=== PATIENT | female | born 1995 | race Caucasian/White ===

== ENCOUNTER 2019-10-05 12:01 | Emergency (ER) | payer OTHER, SELFPAY ==
[2019-10-05 12:27] VITALS: BP 132/89; PULSE 87; RESP 18; TEMP 36.8; O2SAT 98; BMI 30.1
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
--- NOTE | 2019-10-05 12:45 | XR_ITS ---
WS: [id number] Portable AP upright chest, 10/05/2019 Clinical Data: INJURY Comparison: Portable chest, 07/02/2019 Findings: No nodules, masses or effusions are seen. The heart is normal. The pulmonary vascularity is not increased. No pneumonia or pneumothorax is seen. XR/XR chest 1V portable [id number] Impression: Negative chest.
--- NOTE | 2019-10-05 12:45 | CT_ITS ---
WS: [id number] CT HEAD TECHNIQUE: Noncontrast CT of the head obtained from the skullbase to the vertex. CLINICAL INFORMATION: HOLLAND/AMS COMPARISON: None. DLP: 784.[address] scans at [facility] use at least one of these dose optimization techniques: automat ed exposure control; mA and/or kV adjustment per patient size (includes targeted exams where dose is matched to clinical indication); or iterative reconstruction. FINDINGS: No evidence of intracranial hemorrhage or mass effect. Ventricular system and basal cisterns are saravia nt. No extra-axial fluid collections. No evidence of mass or mass effect. Normal rene-white differen tiation. Paranasal sinuses and mastoid air cells are well aerated. .Normal visualized soft tissues. Notified Neelam Enrique at 10/05/2019 1:[address]/CT head wo con* [id number] IMPRESSION: 1. No evidence of intracranial hemorrhage or mass effect. 2. Normal rene-white differentiation. 3. No acute intracranial findings.
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
[2019-10-05] MEDS: iohexol 300 mg/mL 100 mL Btl IV (13:06)
[2019-10-05] MEDS: iohexol 350 mg/mL 100 mL Btl IV (13:07)
[2019-10-05 13:22] VITALS: RESP 18
[2019-10-05] MEDS: ondansetron 2 mg/ML SDV 2 mL 4 MG IVP (13:22)
[2019-10-05] MEDS: morphine 4 mg/mL SDV 1 mL IVP (13:22)
[2019-10-05 13:25] LABS: Basophils % 0.2 %; Eosinophils % 0.2 %; Hematocrit 37.6 % (37.0-47.0); Hemoglobin 12.3 g/dL (11.5-15.3); Lymphocytes # 0.8 10^3/uL (0.8-4.8); Lymphocytes % 12.9 %; Mean Corpuscular HGB Conc 32.7 g/dL (30.0-36.0); Mean Corpuscular Hemoglobin 29.7 pg (28.0-34.0); Mean Corpuscular Volume 90.8 fL (81-99); Mean Platelet Volume 9.2 fL (7.4-10.4); Monocytes # 0.5 10^3/uL (0.2-0.9); Neutrophils # 4.6 10^3/uL (1.8-7.7); Neutrophils % 78.2 %; Nucleated Red Blood Cells % 0 %; Platelet Count 257 10^3/cmm (130-400); Red Blood Count 4.14 10^6/uL (4.1-5.3); Red Cell Distribution Width 12.2 % (12.1-15.1); White Blood Count 5.9 10^3/uL (4.0-10.0)
[2019-10-05] MEDS: sodium chloride 0.9% 1,000 ML 100 ML IV (13:27)
[2019-10-05 13:41] VITALS: BP 131/82; PULSE 83; RESP 16; O2SAT 99
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
[2019-10-05 14:04] LABS: Alanine Aminotransferase 11 U/L (0-33); Albumin Level 3.6 g/dL (3.5-5.2); Alkaline Phosphatase 66 IU/L (35-105); Anion Gap 16.1 (5-19); Aspartate Amino Transferase 13 U/L (0-32); Blood Urea Nitrogen 8 mg/dL (6-20); Calcium 8.7 mg/dL (8.5-10.5); Carbon Dioxide 24 mmol/L (22-29); Chloride 97 mmol/L (98-107); Creatinine Clr Calc Pharmacy 93.9552; Globulin 2.8 g/dL (1.3-4.6); Glomerular Filtration Rate 76.3 mL/min (90-130); Glucose 84 mg/dL (74-109); Potassium 4.1 mmol/L (3.5-5.1); Sodium 133 mmol/L (136-145); Total Bilirubin 0.3 mg/dL (0.15-1.2); Total Protein 6.4 g/dL (6.6-8.7)
[2019-10-05 14:11] LABS: Bilirubin Urine Neg (NEGATIVE); Blood Urine Neg (Negative); Glucose Urine UA Norm (Normal); Ketones Urine Negative (Negative); Nitrate Urine Negative (Negative); Protein Urine Neg (Negative); Specific Gravity, Urine 1.005 (1.005-1.030); Urine Appearance Clear (CLEAR); Urine Color Yellow (Yellow); Urobilinogen Urine Norm (Negative); pH Urine 5 (5-7)
[2019-10-05 14:12] LABS: Leukocyte Esterase Urine Negative (Negative)
[2019-10-05 14:25] LABS: Mucus Urine 2+
[2019-10-05 14:26] LABS: Add Urine Culture? No; Bacteria Urine TRACE; Squamous Epithelial Cell Urine 0-4 (0-5); WBC Urine 0-4 /hpf (0-5)
[2019-10-05 14:34] VITALS: BP 132/90; PULSE 16; RESP 16; O2SAT 98
== END 2019-10-05 14:32 | disposition home or self-care (01) ==
PROVIDERS: Emergency Provider Emergency Medicine; Family Provider Family Medicine
DX: T14.8XXA Other injury of unspecified body region, initial encounter (principal); Y04.8XXA Assault by other bodily force, initial encounter; Y04.2XXA Assault by strike against or bumped into by another person, initial encounter
CPT/HCPCS: 36415; 70450; 70498; 71045; 71260; 74177; 80053; 81001; 84702; 85025; 96360; 96361; 96374; 96375; 99283; 99284; A9270; J2270; J2405; J7030; Q9967

== ENCOUNTER → 2019-10-21 11:51 | Outpatient (BNVA) | payer OTHER, SELFPAY | PROVIDERS: Family Provider Family Medicine; PCP Family Medicine; Visit Provider Nurse Practitioner | DX: J10.1 Influenza due to other identified influenza virus with other respiratory manifestations (principal); R50.9 Fever, unspecified | CPT/HCPCS: 87804 ==

== ENCOUNTER 2019-11-18 10:02 | Outpatient (CLI) | payer OTHER, SELFPAY ==
[2019-11-18 10:51] LABS: Progesterone 33.44 ng/mL
== END 2019-11-18 10:03 | disposition home or self-care (01) ==
LOC: LAB 10:03
PROVIDERS: Family Provider Family Medicine; PCP Family Medicine; Visit Provider Family Medicine
DX: Z33.1 Pregnant state, incidental (principal)
CPT/HCPCS: 84144; 84702

== ENCOUNTER 2019-11-20 13:25 | Emergency (ER) | payer OTHER, SELFPAY ==
[2019-11-20 13:35] VITALS: BMI 29.2
--- NOTE | 2019-11-20 13:36 | ED_ITS ---
Entered by Mercedez Sen, acting as scribe for Adelso Sheppard DO HPI - General Adult General: Chief complaint: Vaginal Bleeding Stated complaint: 5 WEEKS PREG/BLEEDING Time Seen by Provider: 11/20/19 13:56 History of Present Illness: HPI narrative: 24 yo female presents with possible miscarriage. Pt states that she was sent here from her PCP office. Pt states that she has light spotting, she will have it after sex as well. pt states that she has had 2 miscarriages in the past. Pt states that her body doesn't make progesterone. Pt states that she is about 4 weeks and 4 days. MD complaint: spotting Onset (ago): day(s) (1) Severity: mild Relieving factors: none Associated symptoms: Deny chest pain, dyspnea, malaise, nausea, rash or vomiting Review of Systems Const: Denies: fever, chills, body aches, change in appetite, fatigue or malaise ENMT: Denies: throat pain, ear pain, nasal discharge or nasal congestion Card: Denies: chest pain, edema, shortness of breath on exertion or shortness of breath when lying down Resp: Denies: shortness of breath, productive cough or non-productive cough GI: Denies: abdominal pain, nausea, vomiting, vomiting blood, coffee grounds in vomit, diarrhea, constipation, bloating, blood in stool or black tarry stool : Denies: flank pain, difficulty urinating, painful urination, urinary frequency or urinary urgency Skin/Breast: Denies: rash or itching PFS ED PFSH: Medical History (Updated 11/20/19 @ 14:47 by Adelso Sheppard DO) Miscarriage Thyroid cancer Social History (Updated 10/21/19 @ 11:49 by Emy Youssef LPN) Smoking and tobacco status: never smoked Alcohol intake: never Female Reproductive History: Date of last menstrual period: 09/21/19 Physical Exam Const: COMMON NORMALS: no apparent distress GENERAL APPEARANCE: cooperative and comfortable ORIENTATION/CONSCIOUSNESS: Yes awake, Yes oriented to person, Yes oriented to place and Yes oriented to time HENMT: COMMON NORMALS: normocephalic, head/scalp atraumatic, hearing grossly normal bilaterally, external ears normal, EAC's normal, TM's normal bilaterally, nasal mucous membranes and turbinates normal, moist oral mucous membranes and oropharynx normal HEAD & SCALP: normocephalic and atraumatic NOSE: nasal mucous membranes and turbinates normal EXTERNAL EAR: Yes external ears normal EXTERNAL AUDITORY CANAL: EAC's normal TYMPANIC MEMBRANE: TM's normal bilaterally Eye: COMMON NORMALS: PERRL, EOMs intact bilaterally, conjunctivae normal and no scleral icterus CONJUNCTIVA: Yes conjunctivae normal PUPIL: Yes PERRL Neck/C-Spine: COMMON NORMALS: full ROM, no lymphadenopathy, supple and no JVD Lymph: LYMPHATIC: no lymphadenopathy noted and no lymphedema noted Resp: COMMON NORMALS: normal respiratory effort, no retractions, no use of accessory muscles and clear to auscultation bilaterally AUSCULTATION: clear to auscultation bilaterally Cardio: COMMON NORMALS: no JVD, regular rate, regular rhythm and no murmurs RATE: regular rate RHYTHM: regular rhythm GI: COMMON NORMALS: soft to palpation and no hepatosplenomegaly AUSCULTATION: Yes normoactive bowel sounds PALPATION: Yes soft, No tender, No guarding and Yes no hepatosplenomegaly Extremity: COMMON NORMALS: normal to inspection, normal capillary refill, no clubbing, cyanosis or edema, no calf tenderness and no pedal edema Neuro: SENSORIUM/ORIENTATION: Yes oriented to person, Yes oriented to place and Yes oriented to time Skin: COMMON NORMALS: no rashes or lesions noted GENERAL SKIN EXAM: no rashes or lesions noted Course Vital Signs: Vital signs: Vital Signs Temperature 98.4 F 11/20/19 13:39 Pulse Rate 72 11/20/19 14:53 Respiratory Rate 18 11/20/19 14:53 Blood Pressure 132/82 11/20/19 13:39 Pulse Oximetry 96 11/20/19 14:53 MDM - General Adult MDM Narrative: Medical decision making narrative: Discussed results with the patient beta-hCG has increased recommend continued pelvic rest follow-up with primary care doctor next week. I also discussed with Dr. Goldsmith he is comfortable with this plan does not wish to give any progestins. Lab Data: Attestation: I reviewed the patient's lab results. Labs: Lab Results 11/20/19 11/20/19 Range/Units 14:09 14:09 WBC 8.0 (4.0-10.0) 10^3/ uL RBC 4.94 (4.1-5.3) 10^6/u L Hgb 13.9 (11.5-15.3) g/dL Hct 42.3 (37.0-47.0) % MCV 85.6 (81-99) fL MCH 28.1 (28.0-34.0) pg MCHC 32.9 (30.0-36.0) g/dL RDW 12.2 (12.1-15.1) % Plt Count 257 (130-400) 10^3/c mm MPV 9.4 (7.4-10.4) fL Neut % (Auto) 79.3 % Lymph % (Auto) 13.1 % [place] % (Auto) 7.1 % Eos % (Auto) 0.1 % Baso % (Auto) 0.2 % Neut # (Auto) 6.4 (1.8-7.7) 10^3/u L Lymph # (Auto) 1.1 (0.8-4.8) 10^3/u L [place] # (Auto) 0.6 (0.2-0.9) 10^3/u L Eos # (Auto) 0.0 (0.0-0.8) 10^3/u L Baso # (Auto) 0.0 (0.0-0.1) 10^3/u L Nucleated RBC % (a uto) 0 % Nucleated RBCs # 0.0 /100WBC Ser , Nica i-Qnt 289.00 mIU/mL Discharge Plan Discharge Patient Disposition: Home, Self-Care Clinical Impression: Vaginal bleeding Condition: Stable Prescriptions: No Action levothyroxine [Synthroid] 200 mcg tablet 175 mcg PO DAILY RF: 0 folic acid 1 mg Tablet 1 mg PO DAILY RF: 0 28 mg iron- 800 mcg Tablet 1 tab PO DAILY RF: 0 Discharge Orders: Discharge Order (Routine); Ordered 11/20/19 Ordered By: Adelso Sheppard Referrals: Loki Goldsmith MD [Primary Care Provider] - Discharge Diet: Usual diet Discharge Activity: Resume usual activity Activity Restrictions/Additional Instructions: Pelvic rest. Follow-up with Dr. Goldsmith early next week call for an appointment Discharge Date/Time: 11/20/19 14:55 Coding Level of Care Code ED Custom Studio Coordinator for Chg Fwd Exam Comprehensive The documentation recorded by the Mckinley palma Kialy, accurately reflects the service I personally performed and the decisions made by me, Adelso Sheppard, Nov 20, 2019 13:25
[2019-11-20 13:39] VITALS: BP 132/82; PULSE 84; RESP 16; TEMP 36.9; O2SAT 97
[2019-11-20 14:21] LABS: Basophils % 0.2 %; Eosinophils % 0.1 %; Hematocrit 42.3 % (37.0-47.0); Hemoglobin 13.9 g/dL (11.5-15.3); Lymphocytes # 1.1 10^3/uL (0.8-4.8); Lymphocytes % 13.1 %; Mean Corpuscular HGB Conc 32.9 g/dL (30.0-36.0); Mean Corpuscular Hemoglobin 28.1 pg (28.0-34.0); Mean Corpuscular Volume 85.6 fL (81-99); Mean Platelet Volume 9.4 fL (7.4-10.4); Monocytes # 0.6 10^3/uL (0.2-0.9); Monocytes % 7.1 %; Neutrophils # 6.4 10^3/uL (1.8-7.7); Neutrophils % 79.3 %; Nucleated Red Blood Cells % 0 %; Platelet Count 257 10^3/cmm (130-400); Red Blood Count 4.94 10^6/uL (4.1-5.3); Red Cell Distribution Width 12.2 % (12.1-15.1)
[2019-11-20 14:53] VITALS: PULSE 72; RESP 18; O2SAT 96
== END 2019-11-20 14:55 | disposition home or self-care (01) ==
PROVIDERS: Emergency Provider Family Medicine; Family Provider Family Medicine; PCP Family Medicine
DX: O20.9 Hemorrhage in early pregnancy, unspecified (principal)
CPT/HCPCS: 12345; 36415; 84702; 85025; 99281; 99282

== ENCOUNTER 2019-12-08 14:17 | Outpatient (CLI) | payer OTHER, SELFPAY ==
--- NOTE | 2019-12-08 15:00 | US_ITS ---
WS: [id number] EARLY OBSTETRICAL ULTRASOUND (<14 WEEKS). HISTORY: DATING COMPARISON: None available. Single intrauterine gestational sac is identified. Cardiac activity at 131 BPM. [place]-rump length sanjuana sures 0.8 cm which corresponds to a gestation of 6w5d. Normal-appearing yolk sac and amnion demonstra javi. No subchorionic hemorrhage. No free fluid. Normal size ovaries. Corpus luteum RIGHT ovary. US/US OB <=14 wk fetus w transvag IMPRESSION: 1. Single intrauterine gestation of 6 weeks 5 days with an EDC of 07/28/2020. 2. No free fluid.
== END 2019-12-08 14:18 | disposition home or self-care (01) ==
LOC: RADWPI 14:20
PROVIDERS: Family Provider Family Medicine; PCP Family Medicine; Visit Provider Family Medicine
DX: Z36.87 Encounter for antenatal screening for uncertain dates (principal); Z3A.01 Less than 8 weeks gestation of pregnancy
CPT/HCPCS: 76801; 76817

== ENCOUNTER 2019-12-29 16:32 | Emergency (ER) | payer OTHER, SELFPAY ==
[2019-12-29 16:36] VITALS: BP 130/77; PULSE 83; RESP 18; TEMP 36.4; O2SAT 100; BMI 30.1
--- NOTE | 2019-12-29 17:33 | W.ED.ABDPA2 ---
Documented by User: Adelso Sheppard DO 12/30/19 07:57 HPI - Abdominal Pain General: Chief Complaint: Abdominal Pain Stated Complaint: 11 WEEKS PREG AND IS HAVING PRESSURE Time Seen by Provider: 12/29/19 17:15 History of Present Illness: HPI narrative: 24-year-old female presents to the emergency room with complaint of abdominal pain. She is 11 weeks gestation she is a low pelvic cramping intermittently she has no vaginal discharge no dysuria urgency or frequency no vaginal bleeding. She denies any other abdominal discomfort. MD elicited complaint: abdominal pain Associated Symptoms: Denies bloating, chills, coffee ground emesis, constipation, diarrhea, dysuria, fever(s), hematochezia, hematemesis, melena, nausea and vomiting Related Data: Date of Last Menstrual Period: 10/19/19 Review of Systems Const: Denies: fever, chills, body aches, change in appetite, fatigue or malaise ENMT: Denies: throat pain, ear pain, nasal discharge or nasal congestion Card: Denies: chest pain, edema, shortness of breath on exertion or shortness of breath when lying down Resp: Denies: shortness of breath, productive cough or non-productive cough GI: Denies: abdominal pain, nausea, vomiting, vomiting blood, coffee grounds in vomit, diarrhea, constipation, bloating, blood in stool or black tarry stool : Reports: vaginal discharge (described by pt as typical leukorrhea, no vaginal bleeding); Denies: flank pain, difficulty urinating, painful urination, urinary frequency or urinary urgency Skin/Breast: Denies: rash or itching PFS ED PFSH: Medical History (Updated 12/29/19 @ 19:59 by Neelam Enrique) Miscarriage Thyroid cancer Social History (Updated 10/21/19 @ 11:49 by Emy Youssef LPN) Smoking and tobacco status: never smoked Alcohol intake: never Female Reproductive History: Date of last menstrual period: 10/19/19 Physical Exam Const: COMMON NORMALS: no apparent distress GENERAL APPEARANCE: cooperative and comfortable ORIENTATION/CONSCIOUSNESS: Yes awake, Yes oriented to person, Yes oriented to place and Yes oriented to time Eye: COMMON NORMALS: PERRL, EOMs intact bilaterally, conjunctivae normal and no scleral icterus CONJUNCTIVA: Yes conjunctivae normal PUPIL: Yes PERRL Neck/C-Spine: COMMON NORMALS: full ROM, no lymphadenopathy, supple and no JVD Lymph: LYMPHATIC: no lymphadenopathy noted and no lymphedema noted Resp: COMMON NORMALS: normal respiratory effort, no retractions, no use of accessory muscles and clear to auscultation bilaterally AUSCULTATION: clear to auscultation bilaterally Cardio: COMMON NORMALS: no JVD, regular rate, regular rhythm and no murmurs RATE: regular rate RHYTHM: regular rhythm GI: COMMON NORMALS: soft to palpation and no hepatosplenomegaly AUSCULTATION: Yes normoactive bowel sounds PALPATION: Yes soft, No tender, No guarding and Yes no hepatosplenomegaly : OTHER: Bedside ultrasound cardiac activity and activity noted. heart rates in the 150s to 160s labs are pending UA and beta-hCG done. Care turned over to Dr. Jenkins at change of shift. Extremity: COMMON NORMALS: normal to inspection, normal capillary refill, no clubbing, cyanosis or edema, no calf tenderness and no pedal edema Neuro: SENSORIUM/ORIENTATION: Yes oriented to person, Yes oriented to place and Yes oriented to time Skin: COMMON NORMALS: no rashes or lesions noted GENERAL SKIN EXAM: no rashes or lesions noted Course Vital Signs: Vital signs: Vital Signs Temperature 98.2 F 12/29/19 20:57 Pulse Rate 64 12/29/19 20:57 Respiratory Rate 20 H 12/29/19 20:57 Blood Pressure 119/83 12/29/19 20:57 Pulse Oximetry 100 12/29/19 20:57 MDM - Abdominal Pain Lab Data: Labs: Lab Results 12/29/19 12/29/19 12/29/19 Range/Units 17:42 18:00 18:00 WBC 9.6 (4.0-10.0) 10^3/ uL RBC 4.58 (4.1-5.3) 10^6/u L Hgb 12.7 (11.5-15.3) g/dL Hct 38.6 (37.0-47.0) % MCV 84.3 (81-99) fL MCH 27.7 L (28.0-34.0) pg MCHC 32.9 (30.0-36.0) g/dL RDW 13.2 (12.1-15.1) % Plt Count 270 (130-400) 10^3/c mm MPV 9.6 (7.4-10.4) fL Neut % (Auto) 78.0 % Lymph % (Auto) 14.8 % [place] % (Auto) 6.4 % Eos % (Auto) 0.2 % Baso % (Auto) 0.1 % Neut # (Auto) 7.5 (1.8-7.7) 10^3/u L Lymph # (Auto) 1.4 (0.8-4.8) 10^3/u L [place] # (Auto) 0.6 (0.2-0.9) 10^3/u L Eos # (Auto) 0.0 (0.0-0.8) 10^3/u L Baso # (Auto) 0.0 (0.0-0.1) 10^3/u L Nucleated RBC % (a uto) 0 % Nucleated RBCs # 0.0 /100WBC Sodium (136-145) mmol/L Potassium (3.5-5.1) mmol/L Chloride (98-107) mmol/L Carbon Dioxide (22-29) mmol/L Anion Gap (5-19) BUN (6-20) mg/dL Creatinine (0.5-0.9) mg/dL GFR Calculation (90-130) mL/min Glucose (65-115) mg/dL Calculated Osmolal ity (285-295) mOsm/k g Calcium (8.5-10.5) mg/dL Total Bilirubin (0.15-1.2) mg/dL AST (0-32) U/L ALT (0-33) U/L Alkaline Phosphata se (35-105) IU/L Total Protein (6.6-8.7) g/dL Albumin (3.5-5.2) g/dL Globulin (1.3-4.6) g/dL Lipase 36 (13-60) U/L Ser , [place] 57160.00 mIU/mL Urine Color Yellow (Yellow) Urine Appearance Sl hazy (CLEAR) Urine pH 5 (5-7) Ur Specific Gravit y 1.020 (1.005-1.030) Urine Protein Neg (Negative) Urine Glucose (UA) Norm (Normal) Urine Ketones Negative (Negative) Urine Blood Neg (Negative) Urine Nitrate Negative (Negative) Urine Bilirubin Neg (NEGATIVE) Urine Urobilinogen Norm (Negative) mg/dL Ur Leukocyte Liliana ase 2+ H (Negative) Urine RBC None (0-2) /hpf Urine WBC 5-10 H (0-5) /hpf Ur Squamous Epith Cells 10-15 H (0-5) Urine Bacteria 1+ H (NONE) Blood Type Rho(D) Type 12/29/19 12/29/19 Range/Units 18:00 18:00 WBC (4.0-10.0) 10^3/ uL RBC (4.1-5.3) 10^6/u L Hgb (11.5-15.3) g/dL Hct (37.0-47.0) % MCV (81-99) fL MCH (28.0-34.0) pg MCHC (30.0-36.0) g/dL RDW (12.1-15.1) % Plt Count (130-400) 10^3/c mm MPV (7.4-10.4) fL Neut % (Auto) % Lymph % (Auto) % [place] % (Auto) % Eos % (Auto) % Baso % (Auto) % Neut # (Auto) (1.8-7.7) 10^3/u L Lymph # (Auto) (0.8-4.8) 10^3/u L [place] # (Auto) (0.2-0.9) 10^3/u L Eos # (Auto) (0.0-0.8) 10^3/u L Baso # (Auto) (0.0-0.1) 10^3/u L Nucleated RBC % (a uto) % Nucleated RBCs # /100WBC Sodium 135 L (136-145) mmol/L Potassium 4.3 (3.5-5.1) mmol/L Chloride 99 (98-107) mmol/L Carbon Dioxide 26 (22-29) mmol/L Anion Gap 14.3 (5-19) BUN 10 (6-20) mg/dL Creatinine 0.7 (0.5-0.9) mg/dL GFR Calculation 102.0 (90-130) mL/min Glucose 79 (65-115) mg/dL Calculated Osmolal ity 275 L (285-295) mOsm/k g Calcium 9.0 (8.5-10.5) mg/dL Total Bilirubin 0.2 (0.15-1.2) mg/dL AST 13 (0-32) U/L ALT 12 (0-33) U/L Alkaline Phosphata se 64 (35-105) IU/L Total Protein 6.7 (6.6-8.7) g/dL Albumin 4.3 (3.5-5.2) g/dL Globulin 2.4 (1.3-4.6) g/dL Lipase (13-60) U/L Ser , Nica i-Qnt mIU/mL Urine Color (Yellow) Urine Appearance (CLEAR) Urine pH (5-7) Ur Specific Gravit y (1.005-1.030) Urine Protein (Negative) Urine Glucose (UA) (Normal) Urine Ketones (Negative) Urine Blood (Negative) Urine Nitrate (Negative) Urine Bilirubin (NEGATIVE) Urine Urobilinogen (Negative) mg/dL Ur Leukocyte Liliana ase (Negative) Urine RBC (0-2) /hpf Urine WBC (0-5) /hpf Ur Squamous Epith Cells (0-5) Urine Bacteria (NONE) Blood Type B Positive Rho(D) Type Positive Discharge Plan Discharge Patient Disposition: Home, Self-Care Clinical Impression: Threatened miscarriage Condition: Stable Prescriptions: New Keflex 500 mg capsule 500 mg PO Q6H 10 Days Qty: 40 RF: 0 No Action levothyroxine 150 mcg tablet 150 mcg PO DAILY RF: 0 folic acid 1 mg Tablet 1 mg PO DAILY RF: 0 PNV cmb#[id number]-ferrous fumarate-FA [] 28 mg iron- 800 mcg Tablet 1 tab PO DAILY RF: 0 Discharge Orders: Discharge Order (Routine); Ordered 12/29/19 Ordered By: Neelam Enrique Referrals: Loki Goldsmith MD [Primary Care Provider] - 1-3 days Discharge Diet: Advance as tolerated Discharge Activity: Resume usual activity Patient Instructions: Threatened Miscarriage (ED) Activity Restrictions/Additional Instructions: Please return to the ER immediately for any of the signs or symptoms listed on your discharge instruction sheets, worsening/changing of your symptoms, you are not getting better as quickly as expected, or for ANY other cause or concerns. Please return to the ER for new onset of vaginal bleeding, increased pelvic pain, vomiting, or for any other cause for concern. Discharge Date/Time: 12/29/19 20:58 Coding Level of Care Code ED Staff Electrical Engineer for Chg Fwd Documented by User: Neelam Enrique 12/29/19 20:00 HPI - Abdominal Pain General: Chief Complaint: Abdominal Pain Stated Complaint: 11 WEEKS PREG AND IS HAVING PRESSURE Time Seen by Provider: 12/29/19 17:15 [facility] ED PFSH: Medical History (Updated 12/29/19 @ 19:59 by Neelam Enrique) Miscarriage Thyroid cancer Social History (Updated 10/21/19 @ 11:49 by Emy Youssef LPN) Smoking and tobacco status: never smoked Alcohol intake: never Course ED course: 1800 -Case assumed by me at change of shift from Dr. Sheppard. 1845 -I discussed the patient's ultrasound results with her. She has no vaginal discharge or bleeding at this time. She does not want to have a pelvic exam performed. I have informed her this is the proper thing to do for her work-up but she still declines. I do not think this is [place] necessary as the cervix was closed on ultrasound and she has no vaginal discharge or bleeding. Vital Signs: Vital signs: Vital Signs Temperature 98.2 F 12/29/19 20:57 Pulse Rate 64 12/29/19 20:57 Respiratory Rate 20 H 12/29/19 20:57 Blood Pressure 119/83 12/29/19 20:57 Pulse Oximetry 100 12/29/19 20:57 MDM - Abdominal Pain MDM Narrative: Medical decision making narrative: 1999 - Ene is a very nice 24-year-old female who comes in with cramping abdominal pain. At this time her pain has passed. She has no vaginal bleeding or discharge. She is still declining a pelvic exam. Her urine is slightly contaminated but I will go ahead and place her on Keflex for UTI. The patient agrees to follow-up with her primary medical doctor and lump inspector. She understands this could be the sign of an early miscarriage and she agrees to return should her symptoms change or worsen. Lab Data: Attestation: I reviewed the patient's lab results. Labs: Lab Results 12/29/19 12/29/19 12/29/19 Range/Units 17:42 18:00 18:00 WBC 9.6 (4.0-10.0) 10^3/ uL RBC 4.58 (4.1-5.3) 10^6/u L Hgb 12.7 (11.5-15.3) g/dL Hct 38.6 (37.0-47.0) % MCV 84.3 (81-99) fL MCH 27.7 L (28.0-34.0) pg MCHC 32.9 (30.0-36.0) g/dL RDW 13.2 (12.1-15.1) % Plt Count 270 (130-400) 10^3/c mm MPV 9.6 (7.4-10.4) fL Neut % (Auto) 78.0 % Lymph % (Auto) 14.8 % [place] % (Auto) 6.4 % Eos % (Auto) 0.2 % Baso % (Auto) 0.1 % Neut # (Auto) 7.5 (1.8-7.7) 10^3/u L Lymph # (Auto) 1.4 (0.8-4.8) 10^3/u L [place] # (Auto) 0.6 (0.2-0.9) 10^3/u L Eos # (Auto) 0.0 (0.0-0.8) 10^3/u L Baso # (Auto) 0.0 (0.0-0.1) 10^3/u L Nucleated RBC % (a uto) 0 % Nucleated RBCs # 0.0 /100WBC Sodium (136-145) mmol/L Potassium (3.5-5.1) mmol/L Chloride (98-107) mmol/L Carbon Dioxide (22-29) mmol/L Anion Gap (5-19) BUN (6-20) mg/dL Creatinine (0.5-0.9) mg/dL GFR Calculation (90-130) mL/min Glucose (65-115) mg/dL Calculated Osmolal ity (285-295) mOsm/k g Calcium (8.5-10.5) mg/dL Total Bilirubin (0.15-1.2) mg/dL AST (0-32) U/L ALT (0-33) U/L Alkaline Phosphata se (35-105) IU/L Total Protein (6.6-8.7) g/dL Albumin (3.5-5.2) g/dL Globulin (1.3-4.6) g/dL Lipase 36 (13-60) U/L Ser , Nica i-Qnt 05574.00 mIU/mL Urine Color Yellow (Yellow) Urine Appearance Sl hazy (CLEAR) Urine pH 5 (5-7) Ur Specific Gravit y 1.020 (1.005-1.030) Urine Protein Neg (Negative) Urine Glucose (UA) Norm (Normal) Urine Ketones Negative (Negative) Urine Blood Neg (Negative) Urine Nitrate Negative (Negative) Urine Bilirubin Neg (NEGATIVE) Urine Urobilinogen Norm (Negative) mg/dL Ur Leukocyte Liliana ase 2+ H (Negative) Urine RBC None (0-2) /hpf Urine WBC 5-10 H (0-5) /hpf Ur Squamous Epith Cells 10-15 H (0-5) Urine Bacteria 1+ H (NONE) Blood Type Rho(D) Type 12/29/19 12/29/19 Range/Units 18:00 18:00 WBC (4.0-10.0) 10^3/ uL RBC (4.1-5.3) 10^6/u L Hgb (11.5-15.3) g/dL Hct (37.0-47.0) % MCV (81-99) fL MCH (28.0-34.0) pg MCHC (30.0-36.0) g/dL RDW (12.1-15.1) % Plt Count (130-400) 10^3/c mm MPV (7.4-10.4) fL Neut % (Auto) % Lymph % (Auto) % [place] % (Auto) % Eos % (Auto) % Baso % (Auto) % Neut # (Auto) (1.8-7.7) 10^3/u L Lymph # (Auto) (0.8-4.8) 10^3/u L [place] # (Auto) (0.2-0.9) 10^3/u L Eos # (Auto) (0.0-0.8) 10^3/u L Baso # (Auto) (0.0-0.1) 10^3/u L Nucleated RBC % (a uto) % Nucleated RBCs # /100WBC Sodium 135 L (136-145) mmol/L Potassium 4.3 (3.5-5.1) mmol/L Chloride 99 (98-107) mmol/L Carbon Dioxide 26 (22-29) mmol/L Anion Gap 14.3 (5-19) BUN 10 (6-20) mg/dL Creatinine 0.7 (0.5-0.9) mg/dL GFR Calculation 102.0 (90-130) mL/min Glucose 79 (65-115) mg/dL Calculated Osmolal ity 275 L (285-295) mOsm/k g Calcium 9.0 (8.5-10.5) mg/dL Total Bilirubin 0.2 (0.15-1.2) mg/dL AST 13 (0-32) U/L ALT 12 (0-33) U/L Alkaline Phosphata se 64 (35-105) IU/L Total Protein 6.7 (6.6-8.7) g/dL Albumin 4.3 (3.5-5.2) g/dL Globulin 2.4 (1.3-4.6) g/dL Lipase (13-60) U/L Ser , Nica i-Qnt mIU/mL Urine Color (Yellow) Urine Appearance (CLEAR) Urine pH (5-7) Ur Specific Gravit y (1.005-1.030) Urine Protein (Negative) Urine Glucose (UA) (Normal) Urine Ketones (Negative) Urine Blood (Negative) Urine Nitrate (Negative) Urine Bilirubin (NEGATIVE) Urine Urobilinogen (Negative) mg/dL Ur Leukocyte Liliana ase (Negative) Urine RBC (0-2) /hpf Urine WBC (0-5) /hpf Ur Squamous Epith Cells (0-5) Urine Bacteria (NONE) Blood Type B Positive Rho(D) Type Positive Imaging Data ^: US: My impression: Pelvic ultrasound, tech interpretation -9-week 6-day intrauterine . Good heart movement. Heart rate 186. Good movement. All other findings unremarkable. Discharge Plan Discharge Patient Disposition: Home, Self-Care Clinical Impression: Threatened miscarriage Condition: Stable Prescriptions: New Keflex 500 mg capsule 500 mg PO Q6H 10 Days Qty: 40 RF: 0 No Action levothyroxine 150 mcg tablet 150 mcg PO DAILY RF: 0 folic acid 1 mg Tablet 1 mg PO DAILY RF: 0 PNV cmb#95-ferrous fumarate-FA [] 28 mg iron- 800 mcg Tablet 1 tab PO DAILY RF: 0 Discharge Orders: Discharge Order (Routine); Ordered 12/29/19 Ordered By: Neelam Enrique Referrals: Loki Goldsmith MD [Primary Care Provider] - 1-3 days Discharge Diet: Advance as tolerated Discharge Activity: Resume usual activity Patient Instructions: Threatened Miscarriage (ED) Activity Restrictions/Additional Instructions: Please return to the ER immediately for any of the signs or symptoms listed on your discharge instruction sheets, worsening/changing of your symptoms, you are not getting better as quickly as expected, or for ANY other cause or concerns. Please return to the ER for new onset of vaginal bleeding, increased pelvic pain, vomiting, or for any other cause for concern. Discharge Date/Time: 12/29/19 20:58 Coding Level of Care Code ED Staff Electrical Engineer for Scott Felder
--- NOTE | 2019-12-29 18:07 | US_ITS ---
WS: [id number] EARLY OBSTETRICAL ULTRASOUND (<14 WEEKS). HISTORY: Pain COMPARISON: None available. Single intrauterine gestational sac is identified. Cardiac activity at 180 BPM. [place]-rump length sanjuana sures 3.0 cm which corresponds to a gestation of 9w6d. Normal-appearing yolk sac and amnion demonstra javi. No subchorionic hemorrhage. No free fluid. Corpus luteum cyst RIGHT ovary with a maximum diameter of 2.0 cm. US/US OB <= 14 weeks fetus [id number] IMPRESSION: 1. Single intrauterine gestation of 9 weeks 6 days with an EDC of 07/27/2020. 2. No complications. 3. Appropriate growth since the prior ultrasound of 12/08/2019.
[2019-12-29 18:08] LABS: Bilirubin Urine Neg (NEGATIVE); Blood Urine Neg (Negative); Glucose Urine UA Norm (Normal); Ketones Urine Negative (Negative); Leukocyte Esterase Urine 2+ (Negative); Nitrate Urine Negative (Negative); Protein Urine Neg (Negative); Urine Appearance SL Hazy (CLEAR); Urine Color Yellow (Yellow); Urobilinogen Urine Norm (Negative); pH Urine 5 (5-7)
[2019-12-29 18:09] LABS: Add Urine Microscopic? YES
[2019-12-29 18:11] LABS: Add Urine Culture? No; Bacteria Urine 1+
[2019-12-29 18:43] LABS: Basophils % 0.1 %; Eosinophils % 0.2 %; Hematocrit 38.6 % (37.0-47.0); Hemoglobin 12.7 g/dL (11.5-15.3); Lymphocytes # 1.4 10^3/uL (0.8-4.8); Lymphocytes % 14.8 %; Mean Corpuscular HGB Conc 32.9 g/dL (30.0-36.0); Mean Corpuscular Hemoglobin 27.7 pg (28.0-34.0); Mean Corpuscular Volume 84.3 fL (81-99); Mean Platelet Volume 9.6 fL (7.4-10.4); Monocytes # 0.6 10^3/uL (0.2-0.9); Monocytes % 6.4 %; Neutrophils # 7.5 10^3/uL (1.8-7.7); Nucleated Red Blood Cells % 0 %; Platelet Count 270 10^3/cmm (130-400); Red Blood Count 4.58 10^6/uL (4.1-5.3); Red Cell Distribution Width 13.2 % (12.1-15.1); White Blood Count 9.6 10^3/uL (4.0-10.0)
[2019-12-29 19:11] LABS: Alanine Aminotransferase 12 U/L (0-33); Albumin Level 4.3 g/dL (3.5-5.2); Alkaline Phosphatase 64 IU/L (35-105); Anion Gap 14.3 (5-19); Aspartate Amino Transferase 13 U/L (0-32); Blood Urea Nitrogen 10 mg/dL (6-20); Carbon Dioxide 26 mmol/L (22-29); Chloride 99 mmol/L (98-107); Globulin 2.4 g/dL (1.3-4.6); Glucose 79 mg/dL (65-115); Osmolality Calculated 275 mOsm/kg (285-295); Potassium 4.3 mmol/L (3.5-5.1); Sodium 135 mmol/L (136-145); Total Bilirubin 0.2 mg/dL (0.15-1.2); Total Protein 6.7 g/dL (6.6-8.7)
[2019-12-29 19:45] LABS: Lipase 36 U/L (13-60)
[2019-12-29] MEDS: cephALEXin 500 mg Capsule PO (20:30)
[2019-12-29 20:57] VITALS: BP 119/83; PULSE 64; RESP 20; TEMP 36.8; O2SAT 100
== END 2019-12-29 20:58 | disposition home or self-care (01) ==
PROVIDERS: Physician Assistant; Emergency Provider Emergency Medicine; Family Provider Family Medicine; PCP Family Medicine
DX: O20.0 Threatened abortion (principal); Z3A.11 11 weeks gestation of pregnancy; Z85.850 Personal history of malignant neoplasm of thyroid
CPT/HCPCS: 12345; 36415; 76801; 80053; 81001; 83690; 84702; 85025; 86900; 99281; 99283

== ENCOUNTER 2020-03-03 13:06 | Outpatient (CLI) | payer OTHER, SELFPAY ==
--- NOTE | 2020-03-03 13:30 | US_ITS ---
WS: [id number] ULTRASOUND OB COMPLETE TECHNIQUE: Complete ultrasound. CLINICAL INFORMATION: SUPERVISION NORMAL COMPARISON: None. FINDINGS: Cervix measures 5.5 cm Single interuterine gestation is identified with cephalic presentation. Placenta is fundal posterior. Placenta grade 0. Normal amniotic fluid volume. cardiac activity: 147 BPM. AGA: 19w3d NATALIE by ultrasound: 07/25/2020 Estimated weight: 292 g BDP: 4.5 cm = 19w5d HC: 16.9 cm = 19w4d AC: 14.0 cm = 19w3d FEMUR LENGTH: 3.0 cm = 19w3d Anatomic survey: Anatomic survey is normal. Normal stomach. Kidneys and bladder are normal. Normal 3 vessel cord. Norm al 3 vessel cord insertion. Normal 4 chamber heart. Normal spine. Intracranial contents are normal. N ormal posterior fossa and cisterna magna. US/US OB >= 14 weeks fetus [id number] IMPRESSION: 1. Single intrauterine with visualized cardiac activity. AGA 19w3d w ith NATALIE 07/25/2020. 2. Placenta is fundal posterior. No evidence of abruption or previa. 3. anatomic survey is normal. 4. Normal amniotic fluid volume.
== END 2020-03-03 13:07 | disposition home or self-care (01) ==
LOC: RAD 13:07
PROVIDERS: PCP Family Medicine; Visit Provider Family Medicine
DX: Z3A.19 19 weeks gestation of pregnancy (principal); Z34.92 Encounter for supervision of normal pregnancy, unspecified, second trimester
CPT/HCPCS: 76805

== ENCOUNTER 2020-04-17 11:37 | Outpatient (CLI) | payer OTHER, SELFPAY ==
[2020-04-17 11:52] VITALS: BP 117/70; PULSE 70
[2020-04-17 12:00] VITALS: RESP 16; TEMP 36.8
[2020-04-17 12:01] VITALS: BMI 31.1
[2020-04-17 12:03] VITALS: BP 110/65; PULSE 71
[2020-04-17 12:13] VITALS: BP 0/0
[2020-04-17 12:15] VITALS: BP 110/65; PULSE 71; RESP 16; TEMP 36.8
== END 2020-04-17 12:15 | disposition home or self-care (01) ==
LOC: OPOB 11:47 → OBGYN 11:48
PROVIDERS: PCP Family Medicine; Visit Provider Family Medicine
DX: O26.92 Pregnancy related conditions, unspecified, second trimester (principal); H54.7 Unspecified visual loss; Z3A.26 26 weeks gestation of pregnancy
CPT/HCPCS: 59025; 99211

== ENCOUNTER 2020-04-17 12:17 | Emergency (ER) | payer OTHER, SELFPAY ==
[2020-04-17 12:22] VITALS: BP 119/86; PULSE 81; RESP 18; TEMP 36.5; O2SAT 98; BMI 30.1
--- NOTE | 2020-04-17 12:46 | W.ED.EYEPROB ---
HPI - Eye Problem General: Chief complaint: Eye Problems Stated complaint: 26 weeks preg/blurry vision Time Seen by Provider: 04/17/20 12:21 History of Present Illness: HPI Narrative: 24-year-old female comes in complaining of visual disturbance had a sudden onset of tamia-like shaped bright spot at's in both of her eyes. She will see it when she covers her left or her right she is currently this is her third she has 2 living children 1 living children. She L1 SAB 1 she denies any falls denies any head trauma denies any injuries or direct trauma to the eye had sudden onset when she bent over. She is not had any other problem with her . chief complaint: vision change Onset (ago): minute(s) Onset description: sudden Duration: constant Location: both eyes Eye Symptoms: other (Tamia-shaped bright light is noted bilaterally in the central vision) Mechanism: none Severity: mild Context: other () Associated symptoms: Denies cough, fever(s), headache(s), nausea, neck pain, rhinorrhea, vomiting or weakness Treatments Prior to Arrival: none Review of Systems Const: Denies: fever(s) ENMT: Denies: throat pain, ear or mastoid pain, nasal discharge or nasal congestion Card: Denies: chest pain, edema, dyspnea on exertion or orthopnea Resp: Denies: dyspnea, productive cough or non-productive cough GI: Denies: nausea or vomiting : Denies: flank pain, difficulty voiding, dysuria, urinary frequency or urinary urgency Musc: Denies: neck pain Skin/Breast: Denies: rash or pruritus Neuro: Denies: headache(s) PFSH ED PFSH: Medical History (Updated 04/17/20 @ 14:22 by Adelso Sheppard DO) Miscarriage Thyroid cancer Thyroid carcinoma Surgical History (Updated 04/17/20 @ 12:51 by Adelso Sheppard DO) S/P thyroid surgery Thyroidectomy done in 2 stages Social History (Updated 10/21/19 @ 11:49 by Emy Youssef LPN) Smoking and tobacco status: never smoked Alcohol intake: never Female Reproductive History: Date of last menstrual period: 10/19/19 Physical Exam Const: COMMON NORMALS: no acute distress GENERAL APPEARANCE: cooperative and comfortable ORIENTATION/CONSCIOUSNESS: Yes awake, Yes oriented to person, Yes oriented to place and Yes oriented to time HENMT: COMMON NORMALS: normocephalic, atraumatic and hearing grossly normal bilaterally HEAD & SCALP: normocephalic and atraumatic Eye: COMMON NORMALS: Equal, round and reactive pupils present, EOMs intact bilaterally, conjunctivae normal and no scleral icterus CONJUNCTIVA: Yes conjunctivae normal PUPIL: Yes Equal, round and reactive pupils present Neck/C-Spine: COMMON NORMALS: full ROM, no lymphadenopathy, supple and no JVD Lymph: LYMPHATIC: no lymphadenopathy noted and no lymphedema noted Resp: COMMON NORMALS: normal respiratory effort, No retractions, No use of accessory muscles and clear to auscultation bilaterally AUSCULTATION: clear to auscultation bilaterally Cardio: COMMON NORMALS: no JVD, regular rate, regular rhythm and No murmurs present (Cardio) RATE: regular rate RHYTHM: regular rhythm GI: COMMON NORMALS: Soft to palpation and No hepatosplenomegaly present AUSCULTATION: Yes normoactive bowel sounds PALPATION: Yes Soft to palpation, No Tenderness to palpation present (GI), No Guarding due to palpation present (GI) and Yes No hepatosplenomegaly present Extremity: COMMON NORMALS: normal to inspection, capillary refill normal, no clubbing, cyanosis or edema, no calf tenderness and no pedal edema Neuro: SENSORIUM/ORIENTATION: Yes oriented to person, Yes oriented to place and Yes oriented to time OTHER: No focal neurologic deficits noted. Visual carlin are normal. Skin: COMMON NORMALS: no rashes or lesions noted GENERAL SKIN EXAM: no rashes or lesions noted Course Vital Signs: Vital signs: Vital Signs Temperature 97.7 F 04/17/20 12:22 Pulse Rate 70 04/17/20 14:37 Respiratory Rate 04/17/20 14:37 Blood Pressure 111/64 04/17/20 14:37 Pulse Oximetry 97 04/17/20 14:37 MDM - Eye Problem MDM Narrative: Medical decision making narrative: Margi with the patient and with Dr. Goldsmith. No findings on exam or CT will go ahead and discharge her home she has worsening or recurrent symptoms she can return otherwise may need to follow-up with Dr. Goldsmith further advanced imaging may be indicated. I suspect this is a migraine variant. Discharge Plan Discharge Patient Disposition: Home Clinical Impression: , Change in vision Condition: Stable Prescriptions: No Action levothyroxine 150 mcg tablet 175 mcg PO DAILY RF: 0 metronidazole [Flagyl] 500 mg Tablet 250 mg PO BID RF: 0 Tylenol 325 mg Tablet 650 mg PO PRN RF: 0 PNV cmb#95-ferrous fumarate-FA [] 28 mg iron- 800 mcg Tablet 1 tab PO DAILY RF: 0 Referrals: Loki Goldsmith MD [Primary Care Provider] - Discharge Diet: Usual diet Discharge Activity: Increase activity as tolerated Activity Restrictions/Additional Instructions: Follow-up with Dr. Goldsmith this week. Discharge Date/Time: 04/17/20 14:38 Coding Level of Care Code ED Radio Program Checker for Chg Fwd Exam Comprehensive
[2020-04-17 13:21] VITALS: BP 130/71; PULSE 79; RESP 16; O2SAT 97
--- NOTE | 2020-04-17 13:23 | CT_ITS ---
WS: [id number] CT HEAD NONCONTRAST HISTORY: vision changes TECHNIQUE: Contiguous axial imaging performed through the brain in 2.5 mm imaging. Bone and soft tiss ue windows. Sagittal and coronal reformats reviewed. All CT scans at [facility] use at ast one of these dose optimization techniques: automated exposure control; mA and/or kV adjustment pe r patient size (includes targeted exams where dose is matched to clinical indication); or iterative r econstruction. DLP: 740.7 mGy.cm COMPARISON: 10/05/2019 No acute intracranial hemorrhage, midline shift or mass effect. No atrophy or prior infarcts or herniation. Ventricles: Normal size with no hydrocephalus. Paranasal sinuses: As visualized are clear. Mastoid air cells: Well pneumatized. Calvarium and scalp: Skull is intact with no soft tissue edema or swelling. CT/CT head wo con* [id number] IMPRESSION: Negative head CT.
--- NOTE | 2020-04-17 13:47 | PC.NURSE ---
Pt in CT
[2020-04-17 14:01] VITALS: BP 118/69; PULSE 66; RESP 16; O2SAT 99
--- NOTE | 2020-04-17 14:03 | PC.NURSE ---
Pt updated on wait for CT results. Pt denies needs at this time. Call light in reach.
[2020-04-17 14:37] VITALS: BP 111/64; PULSE 70; RESP 17; O2SAT 97
== END 2020-04-17 14:38 | disposition home or self-care (01) ==
PROVIDERS: Emergency Provider Family Medicine; PCP Family Medicine
DX: O26.892 Other specified pregnancy related conditions, second trimester (principal); H53.8 Other visual disturbances; Z3A.26 26 weeks gestation of pregnancy; Z85.850 Personal history of malignant neoplasm of thyroid
CPT/HCPCS: 12345; 70450; 99282

== ENCOUNTER 2020-05-03 17:26 | Outpatient (CLI) | payer OTHER, SELFPAY ==
[2020-05-03 17:39] VITALS: BP 0/0
[2020-05-03 17:42] VITALS: BP 121/69; PULSE 78
[2020-05-03 18:35] VITALS: BMI 31.6
[2020-05-03 18:52] LABS: Bilirubin Urine Neg (NEGATIVE); Blood Urine Neg (Negative); Glucose Urine UA Norm (Normal); Ketones Urine Negative (Negative); Leukocyte Esterase Urine Negative (Negative); Nitrate Urine Negative (Negative); Protein Urine Neg (Negative); Specific Gravity, Urine 1.015 (1.005-1.030); Urine Appearance Clear (CLEAR); Urine Color Yellow (Yellow); Urobilinogen Urine Norm (Negative); pH Urine 7 (5-7)
[2020-05-03 18:54] LABS: Mucus Urine 2+
[2020-05-03 18:55] LABS: Add Urine Culture? No; Bacteria Urine 1+; WBC Urine 0-4 /hpf (0-5)
[2020-05-03 19:32] VITALS: BP 120/74; PULSE 73; RESP 16; TEMP 36.9
[2020-05-03 19:46] VITALS: BP 120/74; PULSE 73; RESP 16; TEMP 36.9
== END 2020-05-03 19:37 | disposition home or self-care (01) ==
LOC: OPOB 17:35 → OBGYN 17:35
PROVIDERS: PCP Family Medicine; Visit Provider Family Medicine
DX: O26.899 Other specified pregnancy related conditions, unspecified trimester (principal); Z3A.00 Weeks of gestation of pregnancy not specified; R10.9 Unspecified abdominal pain
CPT/HCPCS: 81001; 99211

== ENCOUNTER 2020-05-04 09:07 | Outpatient (CLI) | payer OTHER, SELFPAY ==
[2020-05-04 09:58] LABS: Free T4 Free Thyroxine 1.68 ng/dL (0.82-1.77); T3 Free 2.9 PG/ML (2.0-4.4); Thyroid Stimulating Hormone 2.28 uIU/mL (0.27-4.20)
== END 2020-05-04 09:08 | disposition home or self-care (01) ==
LOC: LAB 09:10
PROVIDERS: PCP Family Medicine; Visit Provider Internal Medicine Endocrinology, Diabetes & Metabolism
DX: Z85.850 Personal history of malignant neoplasm of thyroid (principal); O99.282 Endocrine, nutritional and metabolic diseases complicating pregnancy, second trimester; E89.0 Postprocedural hypothyroidism
CPT/HCPCS: 84439; 84443; 84481

== ENCOUNTER → 2020-05-24 10:23 | Outpatient (BNVA) | payer OTHER, SELFPAY | PROVIDERS: PCP Family Medicine; Visit Provider Family Medicine | DX: U07.1 COVID-19 (principal) | CPT/HCPCS: 87635 ==

== ENCOUNTER → 2020-05-29 09:14 | Outpatient (BNVA) | payer OTHER, SELFPAY | PROVIDERS: PCP Family Medicine; Visit Provider Family Medicine | DX: U07.1 COVID-19 (principal); Z87.09 Personal history of other diseases of the respiratory system; Z34.90 Encounter for supervision of normal pregnancy, unspecified, unspecified trimester; Z3A.32 32 weeks gestation of pregnancy | CPT/HCPCS: 80048; 81000; 85025; 87400 ==

== ENCOUNTER 2020-06-09 14:38 | Outpatient (CLI) | payer OTHER, SELFPAY ==
--- NOTE | 2020-06-09 14:45 | US_ITS ---
WS: [id number] OB ultrasound, 06/09/2020 Clinical Data: EVALUATE DUE TO POSITIVE COVID 19 IN Comparison: OB ultrasound, 03/03/2020. Findings: The heart rate is 153 beats per minute. Fetus is in the vertex presentation The cervix measures 4.03 cm and is closed. The fetus is in the vertex presentation. The YUMIKO is 16.73 cm. The center is [facility]. Measurements of growth and development: BPD: 8.3 cm 33 weeks 3 days HC: 30.2 cm 33 weeks 4 days AC: 28.7 cm 32 weeks 5 days FL: 6.5 cm 33 weeks 3 days The estimated weight is 2111 or approximately 1 lb. 10 oz. The estimated gestational age is 33w 2d with an NATALIE of approximately 07/26/2020. / [place] [id number] Impression: 1. Single intrauterine in vertex presentation. 2. Estimated gestational age 33w2d with an NATALIE of 07/26/2020. 3. heart rate 153 beats per minute.
== END 2020-06-09 14:39 | disposition home or self-care (01) ==
LOC: RAD 14:41
PROVIDERS: PCP Family Medicine; Visit Provider Family Medicine
DX: Z36.89 Encounter for other specified antenatal screening (principal); Z3A.33 33 weeks gestation of pregnancy; U07.1 COVID-19
CPT/HCPCS: 76816

== ENCOUNTER 2020-06-14 18:50 | Outpatient (CLI) | payer OTHER, SELFPAY ==
[2020-06-14] VITALS (11 sets, daily range): BP systolic 136; BP diastolic 83; PULSE 85–106; RESP 16; TEMP 36.6; O2SAT 97–99
[2020-06-14 19:54] LABS: Bacteria Urine 1+ /hpf; Bilirubin Urine Neg (Negative); Blood Urine Neg (Negative); Glucose Urine UA Norm (Normal); Ketones Urine Negative (Negative); Leukocyte Esterase Urine Trace (Negative); Mucus Urine 3+ /hpf; Nitrate Urine Negative (Negative); Protein Urine Neg (Negative); RBC Urine 0-4 /hpf (0-2); Urine Appearance Hazy (CLEAR); Urine Color Yellow (Yellow); Urobilinogen Urine Neg (Negative); WBC Urine 0-4 /hpf (0-5); pH Urine 6 (5-7)
[2020-06-14 19:55] LABS: Add Urine Culture? No; Amorphous Sediment Urine 1+ /hpf
== END 2020-06-14 20:10 | disposition home or self-care (01) ==
LOC: OPOB 19:00 → OBGYN 19:01
PROVIDERS: PCP Family Medicine; Visit Provider Family Medicine
DX: O26.899 Other specified pregnancy related conditions, unspecified trimester (principal); Z3A.00 Weeks of gestation of pregnancy not specified; R10.2 Pelvic and perineal pain
CPT/HCPCS: 59025; 81001

== ENCOUNTER 2020-07-08 17:50 | Outpatient (CLI) | payer OTHER, SELFPAY ==
[2020-07-08] VITALS (7 sets, daily range): BP systolic 133–165; BP diastolic 74–85; PULSE 76–81; RESP 16; TEMP 36.6–36.7; BMI 31.6
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
[2020-07-08 18:57] LABS: Add Urine Microscopic? YES; Bilirubin Urine Neg (Negative); Blood Urine Neg (Negative); Glucose Urine UA Norm (Normal); Ketones Urine 2+ (Negative); Leukocyte Esterase Urine 1+ (Negative); Nitrate Urine Negative (Negative); Protein Urine Neg (Negative); Urine Color Yellow (Yellow); Urobilinogen Urine 1 mg/dL (Negative); pH Urine 6 (5-7)
[2020-07-08 19:10] LABS: RBC Urine 0-4 /hpf (0-2)
[2020-07-08 19:11] LABS: Bacteria Urine 1+ /hpf; Mucus Urine 1+ /hpf; Squamous Epithelial Cell Urine 80-100 /hpf (0-5); WBC Urine 15-25 /hpf (0-5)
[2020-07-08 19:12] LABS: Add Urine Culture? No; Amorphous Sediment Urine 2+ /hpf
== END 2020-07-08 20:12 | disposition home or self-care (01) ==
LOC: OPOB 17:51 → OBGYN 17:52
PROVIDERS: Family Medicine; PCP Family Medicine; Visit Provider Family Medicine
DX: O26.899 Other specified pregnancy related conditions, unspecified trimester (principal); Z3A.00 Weeks of gestation of pregnancy not specified; Z91.81 History of falling
CPT/HCPCS: 59025; 76815; 81001; 99211

== ENCOUNTER 2020-07-11 15:36 | Inpatient (IN) | payer OTHER, SELFPAY ==
[2020-07-11] VITALS (52 sets, daily range): BP systolic 0–141; BP diastolic 0–86; PULSE 75–124; RESP 16–18; TEMP 36.5–37; O2SAT 98–99; BMI 31.6
[2020-07-11] MEDS: ampicillin 2,000 MG in sodium chloride 0.9% (plus) 50 ML 100 MG IV (14:58)
[2020-07-11] MEDS: dextrose 5%-lactated ringers 1,000 ML 125 ML IV ×2 (14:59→18:39)
[2020-07-11 15:05] LABS: Basophils % 0.1 %; Eosinophils % 0.1 %; Lymphocytes # 1.2 10^3/uL (0.8-4.8); Lymphocytes % 8.7 %; Mean Corpuscular HGB Conc 32.4 g/dL (30.0-36.0); Mean Corpuscular Volume 83.5 fL (81-99); Monocytes # 0.7 10^3/uL (0.2-0.9); Monocytes % 4.9 %; Neutrophils # 11.66 10^3/uL (1.8-7.7); Neutrophils % 85.4 %; Nucleated Red Blood Cells % 0 %; Platelet Count 262 10^3/cmm (130-400); Red Blood Count 4.07 10^6/uL (4.1-5.3); Red Cell Distribution Width 12.6 % (12.1-15.1); White Blood Count 13.7 10^3/uL (4.0-10.0)
[2020-07-11] MEDS: lactated ringers 1,000 ML 999 ML IV (15:20)
--- NOTE | 2020-07-11 15:51 | P.ANESASSM_ITS ---
Documented by User: Rod Sue CRNA 07/11/20 15:55 Pre-Anesthetic Assessment Pre-Anesthetic Assessment: Height/Weight: Height 1.6 m Weight 81.193 kg Pulse BP Pulse Ox 86 126/67 99 07/11/20 15:48 07/11/20 15:48 07/11/20 15:50 Preop Diagnosis: IUP Proposed Procedure: Lumbar Labor Epidural Was Beta Joe taken within 24 hours: N/A Last intake: 0800 Social: Social History: No alcohol and No tobacco Exam: Pre-Anes Outpt Exam: alert, oriented x 3, clear to auscultation bilaterally and regular rate & rhythm Airway: MP: 2 Dentition: Full History/ROS: No significant history except as noted and No significant complaints Pulmonary: Pulmonary: None reported CV/HEM: CV/HEM: None reported : : None reported Hepatic: Hepatic: None reported GI: GI: None reported Metabolic: Metabolic: Thyroid Musc/skel: Musc/skel: None reported Neuropsych: Neuropsych: None reported Anesthetic Plan: ASA status: 2 Anesthesia: Regional (specify below) (epidural) Meds/Allergies Current Medications: Current Medications Generic Name Dose Route Start Last Admin Trade Name Freq PRN Reason Stop Dose Admin Dextrose/Lactated Ringer's 1,000 mls @ 125 m ls/hr 07/11/20 15:00 07/11/20 14:59 Dextrose 5%-Lact ated Ringers IV 125 mls/hr .Q8H HARIS Administration Ropivacaine 200 mg in 100 mls @ 13 mls/hr 07/11/20 15:15 07/11/20 15:46 Naropin Premix EPIDURAL 13 mls/hr .Q7H42M HARIS Administration Lactated Ringer's 1,000 mls @ 999 m ls/hr 07/11/20 15:07 07/11/20 15:20 Lactated Ringers IV 999 mls/hr .Q1H1M PRN Administration See label comment s PFSH Anesthesia PFSH: Medical History (Updated 07/13/20 @ 00:01 by ) Miscarriage Thyroid cancer Thyroid carcinoma Surgical History S/P thyroid surgery Thyroidectomy done in 2 stages Social History Smoking and tobacco status: never smoked Alcohol intake: never Female Reproductive History: Date of last menstrual period: 10/19/19 : 5 Data Anesthesia CBC & Chem 7: 07/12/20 08:05 Other Labs: Laboratory Results - last 48 hr 07/11/20 14:45 WBC 13.7 H RBC 4.07 L Hgb 11.0 L Hct 34.0 L MCV 83.5 MCH 27.0 L MCHC 32.4 RDW 12.6 Plt Count 262 MPV 10.0 Neut % (Auto) 85.4 Lymph % (Auto) 8.7 [place] % (Auto) 4.9 Eos % (Auto) 0.1 Baso % (Auto) 0.1 Neut # (Auto) 11.66 H Lymph # (Auto) 1.2 [place] # (Auto) 0.7 Eos # (Auto) 0.0 Baso # (Auto) 0.0 Nucleated RBC % (auto) 0 Nucleated RBCs # 0.0 Cardiac Studies: No Data to Display Anesthesia Procedures Epidural: Time Out Performed: Yes Consents Signed: Procedure Consent Consent: from patient, risks and benefits reviewed and patient agrees to proceed Lumbar Level: L3-L4 Epidural position: sitting Epidural procedure: sterile prep of area, 1% lidocaine to numb the area (5), 18 g needle, negative for paresthesia passed, neg for paresthesia, test dose given, 1.5% xylocaine 1: 200k epi (5), 0.2% Ropivacaine bolus ml (5), placed PCEA (5cc q10min x 3), no systemic response, sterile dressing applied, L.U.D. no apparent complications and 0.2% Ropiavacaine @ mls/hr (12) Additional Comments: Called to OB for epidural placement, pt evaluated and assessed for placement and explained procedure. Labs reviewed. Pt agrees to proceed. placed to 5cm in space and tolerated well. Bolused with epidural pump and VSS throughout per nursing chart. Last BP 116/63 . Pain much improved. Documented by User: Dorys Chappell 07/13/20 10:19 PFSH Anesthesia PFSH: Medical History (Updated 07/13/20 @ 00:01 by ) Miscarriage Thyroid cancer Thyroid carcinoma Surgical History S/P thyroid surgery Thyroidectomy done in 2 stages Social History Smoking and tobacco status: never smoked Alcohol intake: never Data Anesthesia CBC & Chem 7: 07/12/20 08:05 Cardiac Studies: No Data to Display
[2020-07-11] MEDS: ampicillin 1,000 MG in sodium chloride 0.9% (plus) 50 ML 100 MG IV (18:02)
--- NOTE | 2020-07-11 19:01 | PC.NURSE ---
1857 Pericare performed. New chucks placed.
--- NOTE | 2020-07-11 19:19 | P.PCNOB_ITS ---
Delivery Note: Date of delivery: July 11, 2020 Pre-Delivery Course: The patient is a 25-year-old 3 para 1-0-1-1 female at 38 weeks estimated gestational age presented to the hospital in active labor. Her membranes were intact upon arrival to hospital. She was noted to be 5 cm dilated after being checked. She been having contractions for several hours prior to arriving at the hospital. Her was unremarkable. Her blood type was B+. She was GBS positive. And received 2 doses of ampicillin prior to delivery of the baby. Otherwise remainder of her lab work was within normal limits. She did have Covid in May and this was verified with a PCR check. Otherwise her has been unremarkable. After arriving the hospital, she received an epidural. She progressed to complete without difficulty. After becoming complete, and amniotomy was performed. Clear liquids was noted. Delivery: DELIVERY: The patient progressed to complete without difficulty. She pushed through 3 contractions. She delivered a female with a weight of 6 pounds 5 ounces with Apgars of 9, 9. The baby was delivered from the KEVIN position. The baby's mouth and nose were suctioned at the site of the perineum. The baby was then completely delivered and placed on the mother's abdomen. The cord was then clamped and cut after 1 minute. There was no nuchal cord. There was no meconium. The placenta and 3 vessel cord were delivered intact shortly thereafter. The perineum and vaginal vault were carefully examined. No lacerations were noted. Both the mother and the baby were in stable condition. A&P Assessment and plan (1) 38 weeks gestation of : Anticipate routine care. The parents expressed a desire to go home tomorrow evening if possible. Since the baby did have 2 doses of antibiotics, that should not be a problem as long as the baby continues to do well. Status: Acute (2) Spontaneous vaginal delivery: Status: Acute (3) Hypothyroidism affecting : We will resume Synthroid at 175 mcg daily. Status: Acute (4) History of thyroid cancer: Status: Acute Coding Level of Care Code Acute Electrician Research for Chg Fwd Diagnoses 38 weeks gestation of Z3A.38 Spontaneous vaginal delivery O80 Hypothyroidism affecting O99.280; E03.9 History of thyroid cancer Z85.850
[2020-07-12] VITALS (8 sets, daily range): BP systolic 104–124; BP diastolic 61–79; PULSE 72–104; RESP 14–18; TEMP 36.6–36.9; O2SAT 97–99
[2020-07-12] MEDS: HYDROcodone-acetaminophen 5-325 mg Tablet PO (04:11)
--- NOTE | 2020-07-12 06:03 | PM.OBGYDC ---
Discharge Providers RN EMERGENCY ROOM Date of Admission: 07/11/20 15:36 Date of Discharge: 07/12/20 Attending Provider at Admission: Celso Smith MD Attending Provider at Discharge: Celso Smith MD Primary Care Provider: Loki Goldsmith MD Diagnoses at Discharge Discharge Diagnosis (1) 38 weeks gestation of : Status: Acute (2) Spontaneous vaginal delivery: Status: Acute (3) Hypothyroidism affecting : Status: Acute (4) History of thyroid cancer: Status: Acute Reason for Visit Reason for Visit: contractions Hospital Course Hospital Course The patient is a 25-year-old 3 para 1-0-1-1 female at 38 weeks estimated gestational age who presented to the hospital in active labor. Her membranes were intact. An epidural was placed. She quickly progressed to complete and had an unremarkable vaginal delivery of a healthy appearing female . Her course was also unremarkable. Her bleeding was within normal limits. Her pain was well controlled. She breast-fed without difficulty. There were no concerns or complications. Information Peripartum Data: Delivery Method: Vaginal Physical Exam Narrative: EXAM NARRATIVE: The patient is alert. She appears comfortable. Her heart has a regular rate and rhythm with no murmurs appreciated. Lungs are clear to auscultation bilaterally. Her fundus is firm and below the umbilicus. Urinary Catheter Management^: Ramírez: Cath Placed During This Visit: yes Urinary Catheter Date of Insertion: 07/11/20 Urinary Catheter Time of Insertion: 16:00 Discharge Data Data Completed and Pending: Pending at discharge Category Date Time Status Hemagram Timed Lab 07/12/20 07:17 Uncollected Labs from last 24 hours 07/11/20 14:45 WBC 13.7 H RBC 4.07 L Hgb 11.0 L Hct 34.0 L MCV 83.5 MCH 27.0 L MCHC 32.4 RDW 12.6 Plt Count 262 MPV 10.0 Neut % (Auto) 85.4 Lymph % (Auto) 8.7 [place] % (Auto) 4.9 Eos % (Auto) 0.1 Baso % (Auto) 0.1 Neut # (Auto) 11.66 H Lymph # (Auto) 1.2 [place] # (Auto) 0.7 Eos # (Auto) 0.0 Baso # (Auto) 0.0 Nucleated RBC % (a uto) 0 Nucleated RBCs # 0.0 Vitals: Last Vital Signs Temp 98.5 F 07/12/20 00:05 Pulse 102 H 07/12/20 03:05 Resp 14 07/12/20 03:05 BP 109/64 07/12/20 03:05 Pulse Ox 99 07/12/20 03:05 Discharge Plan Discharge Patient Disposition: Home Condition: Stable Prescriptions: New ibuprofen 800 mg Tablet 800 mg PO TID Qty: 30 RF: 0 Continued levothyroxine 150 mcg tablet 175 mcg PO DAILY RF: 0 PNV cmb#95-ferrous fumarate-FA [] 28 mg iron- 800 mcg Tablet 1 tab PO DAILY RF: 0 Discharge Orders: Discharge Order (Routine); Ordered 07/12/20 Ordered By: Celso Smith Referrals: Loki Goldsmith MD [Primary Care Provider] - 6 Weeks Discharge Diet: Usual diet Discharge Activity: Limit activity as instructed Discharge Attestations RN EMERGENCY ROOM Time Spent in Discharge Care*: less than 30 min Coding Level of Care Code Acute Physical Therapy Resident for Chg Fwd Diagnoses 38 weeks gestation of Z3A.38 Spontaneous vaginal delivery O80 Hypothyroidism affecting O99.280; E03.9 History of thyroid cancer Z85.850
[2020-07-12 08:41] LABS: Hematocrit 35.1 % (37.0-47.0); Hemoglobin 11.3 g/dL (11.5-15.3); Mean Corpuscular HGB Conc 32.2 g/dL (30.0-36.0); Mean Corpuscular Hemoglobin 27.2 pg (28.0-34.0); Mean Corpuscular Volume 84.6 fL (81-99); Mean Platelet Volume 10.1 fL (7.4-10.4); Platelet Count 239 10^3/cmm (130-400); Red Blood Count 4.15 10^6/uL (4.1-5.3); Red Cell Distribution Width 12.7 % (12.1-15.1); White Blood Count 15.5 10^3/uL (4.0-10.0)
[2020-07-12] MEDS: levothyroxine 100 mcg Tablet PO (08:58)
[2020-07-12] MEDS: ibuprofen 800 mg tablet PO ×2 (09:00→15:01)
[2020-07-12] MEDS: docusate sodium 100 mg Capsule PO ×2 (09:00→18:31)
[2020-07-12] MEDS: prenatal vitamin Capsule 1 CAP PO (09:00)
[2020-07-12] MEDS: levothyroxine 150 mcg Tablet 75 MCG PO (09:05)
== END 2020-07-12 20:14 | disposition home or self-care (01) | DRG 807 ==
LOC: OPOB 15:39 → OBGYN 15:39
PROVIDERS: Admitting Provider Family Medicine; PCP Family Medicine; Visit Provider Family Medicine
DX: O99.824 Streptococcus B carrier state complicating childbirth (principal); Z37.0 Single live birth; O99.284 Endocrine, nutritional and metabolic diseases complicating childbirth; Z3A.38 38 weeks gestation of pregnancy; E03.9 Hypothyroidism, unspecified; Z85.850 Personal history of malignant neoplasm of thyroid; Z86.19 Personal history of other infectious and parasitic diseases
CPT/HCPCS: 12345; 36415; 51702; 59025; 59409; 85025; 85027; 98960; 99211; J0290; J2795

== ENCOUNTER 2020-10-04 21:31 | Emergency (ER) | payer OTHER, SELFPAY ==
[2020-10-04 21:50] VITALS: BP 144/93; PULSE 106; RESP 18; TEMP 36.7; O2SAT 96; BMI 30.1
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
[2020-10-05 00:29] VITALS: BP 136/80; PULSE 90; RESP 18; O2SAT 99
== END 2020-10-05 00:30 | disposition home or self-care (01) ==
PROVIDERS: Emergency Provider Nurse Practitioner Family; PCP Family Medicine
DX: S16.1XXA Strain of muscle, fascia and tendon at neck level, initial encounter (principal); S29.012A Strain of muscle and tendon of back wall of thorax, initial encounter; T74.91XA Unspecified adult maltreatment, confirmed, initial encounter; Y04.2XXA Assault by strike against or bumped into by another person, initial encounter; Z85.850 Personal history of malignant neoplasm of thyroid
CPT/HCPCS: 12345; 71046; 72125; 72128; 99281; 99283

== ENCOUNTER 2020-11-06 10:33 | Outpatient (CLI) | payer OTHER, SELFPAY ==
--- NOTE | 2020-11-06 11:49 | XR_ITS ---
WS: [id number] RIGHT SHOULDER: 3 VIEW(S) TECHNIQUE: Internal and external rotation with Y view. HISTORY: RIGHT SHOULDER AND ARM PAIN COMPARISON: None available. No fracture or dislocation or soft tissue abnormality. Glenohumeral and AC joints are unremarkable. XR/XR shoulder RT min 2V* [id number] IMPRESSION: Normal RIGHT shoulder.
--- NOTE | 2020-11-06 11:49 | XR_ITS ---
WS: [id number] RIGHT HUMERUS: 2 VIEW(S) TECHNIQUE: AP and lateral. HISTORY: RIGHT SHOULDER AND ARM PAIN COMPARISON: None available. No acute fracture or dislocation. No joint or soft tissue abnormality. No foreign bodies and visualized upper thorax is unremarkable. XR/[place] [id number] IMPRESSION: Normal RIGHT humerus.
== END 2020-11-06 10:34 | disposition home or self-care (01) ==
LOC: RAD 10:44 → RADWPI 11:48
PROVIDERS: PCP Family Medicine; Visit Provider Nurse Practitioner
DX: M25.511 Pain in right shoulder (principal); M79.621 Pain in right upper arm
CPT/HCPCS: 73030; 73060

== ENCOUNTER 2020-11-23 11:36 | Outpatient (CLI) | payer OTHER, SELFPAY ==
[2020-11-23 13:07] LABS: Thyroid Stimulating Hormone 70.58 uIU/mL (0.27-4.20)
[2020-11-23 13:30] LABS: Free T4 Free Thyroxine 0.39 ng/dL (0.82-1.77)
[2020-11-24 16:54] LABS: Thyroglobulin AB <1 IU/mL (< or = 1)
== END 2020-11-23 11:37 | disposition home or self-care (01) ==
PROVIDERS: PCP Family Medicine; Visit Provider Internal Medicine Endocrinology, Diabetes & Metabolism
DX: E03.9 Hypothyroidism, unspecified (principal)
CPT/HCPCS: 84439; 84443; 86800

== ENCOUNTER 2021-01-25 10:13 | Outpatient (CLI) | payer OTHER, SELFPAY ==
[2021-01-25 11:16] LABS: Basophils % 0.3 %; Eosinophils % 0.2 %; Hematocrit 44.7 % (37.0-47.0); Hemoglobin 14.6 g/dL (11.5-15.3); Lymphocytes # 1.4 10^3/uL (0.8-4.8); Lymphocytes % 22.7 %; Mean Corpuscular HGB Conc 32.7 g/dL (30.0-36.0); Mean Corpuscular Hemoglobin 27.1 pg (28.0-34.0); Mean Corpuscular Volume 83.1 fL (81-99); Mean Platelet Volume 9.2 fL (7.4-10.4); Monocytes # 0.4 10^3/uL (0.2-0.9); Monocytes % 6.8 %; Neutrophils # 4.39 10^3/uL (1.8-7.7); Neutrophils % 69.7 %; Nucleated Red Blood Cells % 0 %; Platelet Count 336 10^3/cmm (130-400); Red Blood Count 5.38 10^6/uL (4.1-5.3); Red Cell Distribution Width 13.1 % (12.1-15.1); White Blood Count 6.3 10^3/uL (4.0-10.0)
[2021-01-25 11:50] LABS: Alanine Aminotransferase 12 U/L (0-33); Albumin Level 4.6 g/dL (3.5-5.2); Alkaline Phosphatase 94 IU/L (35-105); Anion Gap 13.4 (5-19); Aspartate Amino Transferase 13 U/L (0-32); Blood Urea Nitrogen 11 mg/dL (6-20); Calcium 8.8 mg/dL (8.5-10.5); Carbon Dioxide 27 mmol/L (22-29); Chloride 102 mmol/L (98-107); Free T4 Free Thyroxine 1.15 ng/dL (0.82-1.77); Globulin 2.5 g/dL (1.3-4.6); Glomerular Filtration Rate 86.7 mL/min (90-130); Glucose 72 mg/dL (65-115); Osmolality Calculated 284 mOsm/kg (285-295); Potassium 4.4 mmol/L (3.5-5.1); Sodium 138 mmol/L (136-145); T3 Free 2.3 PG/ML (2.0-4.4); Thyroid Stimulating Hormone 14.96 uIU/mL (0.27-4.20); Total Bilirubin 0.3 mg/dL (0.15-1.2); Total Protein 7.1 g/dL (6.6-8.7)
== END 2021-01-25 10:14 | disposition home or self-care (01) ==
LOC: LAB 10:19
PROVIDERS: PCP Family Medicine; Visit Provider Family Medicine
DX: R25.2 Cramp and spasm (principal); E83.51 Hypocalcemia; Z51.81 Encounter for therapeutic drug level monitoring; E03.9 Hypothyroidism, unspecified
CPT/HCPCS: 80053; 84439; 84443; 84481; 85025

== ENCOUNTER → 2021-06-22 08:37 | Outpatient (BNVA) | payer OTHER, SELFPAY | PROVIDERS: PCP Family Medicine; Visit Provider Internal Medicine | DX: Z34.91 Encounter for supervision of normal pregnancy, unspecified, first trimester (principal); C73 Malignant neoplasm of thyroid gland; E89.0 Postprocedural hypothyroidism; Z98.890 Other specified postprocedural states | CPT/HCPCS: 99204 ==

== ENCOUNTER 2021-07-20 13:57 | Outpatient (CLI) | payer OTHER, BC, SELFPAY ==
--- NOTE | 2021-07-20 14:01 | US_ITS ---
WS: [id number] EARLY OBSTETRICAL ULTRASOUND (<14 WEEKS). HISTORY: DATING COMPARISON: None available. Single intrauterine gestational sac is identified. Cardiac activity at 153 BPM. [place]-rump length sanjuana sures 4.7 cm which corresponds to a gestation of 11w4d. Normal-appearing yolk sac and amnion demonstr ated. No subchorionic hemorrhage. No free fluid. Normal size ovaries with no mass. Small corpus luteal cyst associated with the RIGHT ovary measures 1 .5 x 1.5 x 1.5 cm. Cervix is closed. US/US OB <= 14 weeks fetus [id number] IMPRESSION: 1. Single intrauterine gestation of 11 weeks 4 days with an EDC of 02/04/2022. 2. Normal cardiac activity.
== END 2021-07-20 13:58 | disposition home or self-care (01) ==
PROVIDERS: PCP Family Medicine; Visit Provider Family Medicine
DX: Z34.81 Encounter for supervision of other normal pregnancy, first trimester; Z3A.11 11 weeks gestation of pregnancy
CPT/HCPCS: 76801

== ENCOUNTER 2021-07-20 14:01 | Outpatient (CLI) | payer BC, SELFPAY ==
[2021-07-20 15:24] LABS: Thyroid Stimulating Hormone 0.09 uIU/mL (0.27-4.20)
[2021-07-21 07:07] LABS: T3 Total 180 ng/dL (76-181)
== END 2021-07-20 14:02 | disposition home or self-care (01) ==
PROVIDERS: PCP Family Medicine; Visit Provider Internal Medicine
DX: C73 Malignant neoplasm of thyroid gland (principal); E03.9 Hypothyroidism, unspecified; Z98.890 Other specified postprocedural states
CPT/HCPCS: 36415; 84439; 84443; 84480

== ENCOUNTER → 2021-07-24 11:11 | Outpatient (BNVA) | payer OTHER, BC, SELFPAY | PROVIDERS: PCP Family Medicine; Visit Provider Internal Medicine | DX: Z34.92 Encounter for supervision of normal pregnancy, unspecified, second trimester (principal); E03.9 Hypothyroidism, unspecified; Z98.890 Other specified postprocedural states; C73 Malignant neoplasm of thyroid gland | CPT/HCPCS: 99214 ==

== ENCOUNTER 2021-08-29 23:56 | Outpatient (CLI) | payer OTHER, BC, SELFPAY ==
[2021-08-30] VITALS (13 sets, daily range): BP systolic 95–133; BP diastolic 53–81; PULSE 63–77; RESP 16; BMI 29.0
== END 2021-08-30 02:40 | disposition home or self-care (01) ==
LOC: OPOB 23:57 → OBGYN 23:57
PROVIDERS: PCP Family Medicine; Visit Provider Family Medicine
DX: O26.899 Other specified pregnancy related conditions, unspecified trimester (principal); Z3A.00 Weeks of gestation of pregnancy not specified; S39.91XA Unspecified injury of abdomen, initial encounter; X58.XXXA Exposure to other specified factors, initial encounter
CPT/HCPCS: 99211

== ENCOUNTER 2021-09-20 15:28 | Outpatient (CLI) | payer OTHER, SELFPAY ==
--- NOTE | 2021-09-20 15:45 | US_ITS ---
WS: [id number] THYROID ULTRASOUND HISTORY: Status post complete thyroidectomy 2017. History of thyroid cancer. COMPARISON: 10/20/2015 No residual thyroid tissue is noted within the thyroid bed or along the cervical chain. There is a ly mph node in the RIGHT neck which is normal size and shape. Normal fatty hilum. There are a few additi onal lymph nodes noted bilaterally which are all normal size and shape. US/US thyroid [id number] IMPRESSION: 1. Complete thyroidectomy.. No recurrent thyroid tissue in the thyroid bed. 2. Normal bilateral cervical chain lymph nodes.
== END 2021-09-20 15:29 | disposition home or self-care (01) ==
PROVIDERS: PCP Family Medicine; Visit Provider Internal Medicine
DX: E89.0 Postprocedural hypothyroidism (principal); Z98.890 Other specified postprocedural states; C73 Malignant neoplasm of thyroid gland
CPT/HCPCS: 76536

== ENCOUNTER 2021-09-28 09:25 | Outpatient (CLI) | payer OTHER, SELFPAY ==
--- NOTE | 2021-09-28 09:36 | US_ITS ---
WS: [id number] OBSTETRICAL ULTRASOUND COMPLETE HISTORY: ANATOMY COMPARISON: 07/20/2021 Single intrauterine gestation in Cephalic presentation. Cervix is Closed and normal length. Cervical length is 3.9 cm. Normal amount of amniotic fluid surrounds the fetus. Placenta: Anterior, no previa or abruption. Placenta grade 0 Heart: 153 BPM. Four chambers are identified. RIGHT and LEFT outflow tracts are unremarkable. Anatomy: Intracranial structures and spine are normal. kidneys, stomach and urinary bladd er are unremarkable. Abdominal wall, three-vessel cord and cord insertion site are normal. 4 extremities are present. profile: Unremarkable. Gender: Female. measurements: BPD = 5.2 cm = 21w6d HC = 19.5 cm = 21w5d AC = 16.4 cm = 21w3d FL = 3.7 cm = 21w6d EFW: 438 g. Biometry is internally concordant. AGA by ultrasound: 21w5d NATALIE by ultrasound: 02/03/2022 US/US OB >= 14 weeks fetus [id number] IMPRESSION: 1. Single intrauterine gestation of 21w5d with an NATALIE of 02/03/2022. Appropria te growth since the prior ultrasound. 2. Unremarkable screening survey of anatomy.
== END 2021-09-28 09:26 | disposition home or self-care (01) ==
LOC: RAD 09:30
PROVIDERS: PCP Family Medicine; Visit Provider Family Medicine
DX: Z34.82 Encounter for supervision of other normal pregnancy, second trimester; Z3A.21 21 weeks gestation of pregnancy
CPT/HCPCS: 76805

== ENCOUNTER 2021-10-22 12:58 | Outpatient (CLI) | payer OTHER, SELFPAY ==
[2021-10-22 14:04] LABS: Free T4 Free Thyroxine 1.47 ng/dL (0.82-1.77); Thyroid Stimulating Hormone 0.71 uIU/mL (0.27-4.20)
[2021-10-23 08:57] LABS: T3 Total 164 ng/dL (76-181)
== END 2021-10-22 12:59 | disposition home or self-care (01) ==
PROVIDERS: Internal Medicine; PCP Family Medicine
DX: Z34.92 Encounter for supervision of normal pregnancy, unspecified, second trimester (principal); C73 Malignant neoplasm of thyroid gland; E03.9 Hypothyroidism, unspecified; Z98.890 Other specified postprocedural states
CPT/HCPCS: 84439; 84443; 84480

== ENCOUNTER 2021-11-24 21:50 | Emergency (ER) | payer OTHER, SELFPAY ==
[2021-11-24 22:15] VITALS: BP 130/84; PULSE 75; RESP 16; TEMP 36.6; O2SAT 98; BMI 31.8
--- NOTE | 2021-11-24 22:22 | W.ED.ALLEREA ---
Documented by User: NAHOMY Moore 11/24/21 23:42 HPI - Allergic Reaction General: Chief complaint: Allergic Reaction Stated complaint: Allergic Reaction/SOB Time Seen by Provider: 11/24/21 22:21 History of Present Illness: HPI narrative: 26-year-old female comes in today with complaints of itchy rash to the upper torso. Patient reports that she is about 30 to 32 weeks . Patient started having a rash about 845. Patient has not taken any medication for the rash. Last time patient he was a piece of cake at about 5:00. Patient denies any respiratory difficulty. Patient denies any nausea vomiting or diarrhea. Patient appears nontoxic. Patient appears no pain. complaint: allergic reaction Onset (ago): hour(s) Exposure: food Known history of allergy to: No known allergies Associated symptoms: Reports rash; Deny abdominal pain Treatment prior to arrival: none Review of Systems General: Reports: 10 or more systems reviewed and unremarkable except in HPI and below Const: Denies: fever(s) Card: Denies: chest pain Resp: Denies: dyspnea GI: Denies: abdominal pain Skin/Breast: Reports: rash PFSH ED PFSH: Medical History Nazario's disease Miscarriage Thyroid cancer Thyroid carcinoma Surgical History S/P thyroid surgery Thyroidectomy done in 2 stages Family History Father No problems noted. Mother No problems noted. Social History Smoking and tobacco status: never smoked Second hand smoke exposure: No Smoking risk assessment/counseling performed?: Yes Alcohol intake: current Alcohol intake frequency: holidays/special occasions only Alcohol type: wine Desire information about alcohol rehabilitation?: No Counseling given: No Desire information about substance/drug rehabilitation?: No Counseling given: No Adopted: No Caregiver/support person: No Lives independently: Yes Household members: children and other Housing: House Marital status: Single Number of children: 2 Highest education level completed: Associate Degree: Academic Program service: No Current occupational status: employed History of recent travel: No Sexually active: Yes Current gender identity: Female María/Holiness: Lutheran Agree to transfusion: Yes Female Reproductive History: Date of last menstrual period: 09/30/20 Physical Exam Const: COMMON NORMALS: alert HENMT: COMMON NORMALS: normocephalic HEAD & SCALP: normocephalic MOUTH: Normal oral and palatal mucosa present THROAT: posterior oropharynx normal Neck/C-Spine: COMMON NORMALS: full ROM and no lymphadenopathy Chest: CHEST: Yes rash (Maculopapular rash generalized) Resp: COMMON NORMALS: normal respiratory effort and clear to auscultation bilaterally AUSCULTATION: clear to auscultation bilaterally Cardio: COMMON NORMALS: regular rate and regular rhythm RATE: regular rate RHYTHM: regular rhythm GI: COMMON NORMALS: Soft to palpation and non-tender PALPATION: Yes Soft to palpation Extremity: COMMON NORMALS: full ROM and no pedal edema Neuro: SENSORIUM/ORIENTATION: Yes alert Psych: COMMON NORMALS: cooperative Skin: RASHES: rashes noted (Generalized central maculopapular rash) Course Vital Signs: Vital signs: Vital Signs Temperature 97.8 F 11/24/21 22:15 Pulse Rate 74 11/24/21 23:14 Respiratory Rate 16 11/24/21 23:14 Blood Pressure 136/81 11/24/21 23:14 Pulse Oximetry 99 11/24/21 23:14 MDM - Allergic Reaction Medical Decision Making 26-year-old female comes in today with itchy rash. On exam patient has a maculopapular rash mainly to the torso. Patient does have some areas to her upper extremities from scratching. Lungs are clear to auscultation. Vital signs are normal. Patient is 32 weeks . Differential diagnosis includes but not limited to anaphylaxis, urticaria, allergic reaction. Patient was given 50 mg of diphenhydramine IM x1 with good relief of itching and rash. Believe the patient probably has an allergic reaction she will continue with diphenhydramine or Claritin or Zyrtec for further relief of symptoms. Reassured patient might take 2 to 3 days for the rash completely clear. Recommended avoiding triggers and follow-up with primary care for further instructions. Patient reported understanding. Discharge Plan Discharge Patient Disposition: Home Clinical Impression: Allergic reaction Qualifiers: Encounter type: initial encounter Qualified Code(s): T78.40XA - Allergy, unspecified, initial encounter Condition: Stable Prescriptions: No Action levothyroxine 150 mcg tablet 150 mcg PO DAILY Qty: 90 3RF Rx Instructions: Take 1 1/2 tablets on Friday and Friday. Take one tablet by mouth Friday, Friday, , Friday, and Friday. PNV cmb#95-ferrous fumarate-FA [] 28 mg iron- 800 mcg Tablet 1 tab PO DAILY 0RF Discharge Orders: Discharge ED (Routine); Ordered 11/24/21 Ordered By: Jamshid Franz Referrals: Loki Goldsmith MD [Primary Care Provider] - Discharge Diet: Usual diet Discharge Activity: Increase activity as tolerated Patient Instructions: General Allergic Reaction (ED) Activity Restrictions/Additional Instructions: Drink plenty of fluids. Use diphenhydramine 25 to 50 mg every 6 hours as needed for rash or itching. If diphenhydramine makes you too sleepy or irritable you can use loratadine, Claritin, or cetirizine, Zyrtec. You can alternate these medications every 12 hours to control itching and the rash. It may take 2 to 3 days for the rash to resolve. Avoid hot showers or spicy foods as this may aggravate the rash. Follow-up with primary care in 2 to 3 days for recheck. Return to ER for worsening symptoms or new concerns. Coding Level of Care Code ED Ship Propeller Finisher for Chg Fwd Exam Comprehensive Documented by User: Mark Cunningham DO 11/25/21 01:21 HPI - Allergic Reaction General: Chief complaint: Allergic Reaction Stated complaint: Allergic Reaction/SOB Time Seen by Provider: 11/24/21 22:21 PFS ED PFSH: Medical History Nazario's disease Miscarriage Thyroid cancer Thyroid carcinoma Surgical History S/P thyroid surgery Thyroidectomy done in 2 stages Family History Father No problems noted. Mother No problems noted. Social History Smoking and tobacco status: never smoked Second hand smoke exposure: No Smoking risk assessment/counseling performed?: Yes Alcohol intake: current Alcohol intake frequency: holidays/special occasions only Alcohol type: wine Desire information about alcohol rehabilitation?: No Counseling given: No Desire information about substance/drug rehabilitation?: No Counseling given: No Adopted: No Caregiver/support person: No Lives independently: Yes Household members: children and other Housing: House Marital status: Single Number of children: 2 Highest education level completed: Associate Degree: Academic Program service: No Current occupational status: employed History of recent travel: No Sexually active: Yes Current gender identity: Female María/Holiness: Lutheran Agree to transfusion: Yes Course Vital Signs: Vital signs: Vital Signs Temperature 97.8 F 11/24/21 22:15 Pulse Rate 74 11/24/21 23:14 Respiratory Rate 16 11/24/21 23:14 Blood Pressure 136/81 11/24/21 23:14 Pulse Oximetry 99 11/24/21 23:14 MDM - Allergic Reaction Medical Decision Making 26-year-old female comes in today with itchy rash. On exam patient has a maculopapular rash mainly to the torso. Patient does have some areas to her upper extremities from scratching. Lungs are clear to auscultation. Vital signs are normal. Patient is 32 weeks . Differential diagnosis includes but not limited to anaphylaxis, urticaria, allergic reaction. Patient was given 50 mg of diphenhydramine IM x1 with good relief of itching and rash. Believe the patient probably has an allergic reaction she will continue with diphenhydramine or Claritin or Zyrtec for further relief of symptoms. Reassured patient might take 2 to 3 days for the rash completely clear. Recommended avoiding triggers and follow-up with primary care for further instructions. Patient reported understanding. This patient was originally seen by NAHOMY Soto.? I agree with his history, evaluation, and treatment. Discharge Plan Discharge Patient Disposition: Home Clinical Impression: Allergic reaction Qualifiers: Encounter type: initial encounter Qualified Code(s): T78.40XA - Allergy, unspecified, initial encounter Condition: Stable Prescriptions: No Action levothyroxine 150 mcg tablet 150 mcg PO DAILY Qty: 90 3RF Rx Instructions: Take 1 1/2 tablets on Friday and Friday. Take one tablet by mouth Friday, Friday, , Friday, and Friday. PNV cmb#95-ferrous fumarate-FA [] 28 mg iron- 800 mcg Tablet 1 tab PO DAILY 0RF Discharge Orders: Discharge ED (Routine); Ordered 11/24/21 Ordered By: Jamshid Franz Referrals: Loki Goldsmith MD [Primary Care Provider] - Discharge Diet: Usual diet Discharge Activity: Increase activity as tolerated Patient Instructions: General Allergic Reaction (ED) Activity Restrictions/Additional Instructions: Drink plenty of fluids. Use diphenhydramine 25 to 50 mg every 6 hours as needed for rash or itching. If diphenhydramine makes you too sleepy or irritable you can use loratadine, Claritin, or cetirizine, Zyrtec. You can alternate these medications every 12 hours to control itching and the rash. It may take 2 to 3 days for the rash to resolve. Avoid hot showers or spicy foods as this may aggravate the rash. Follow-up with primary care in 2 to 3 days for recheck. Return to ER for worsening symptoms or new concerns. Coding Level of Care Code ED Ship Propeller Finisher for Scott Felder Exam Comprehensive
[2021-11-24] MEDS: diphenhydrAMINE 50 mg/mL SDV 1mL IM (22:30)
[2021-11-24 23:12] VITALS: BP 136/81; PULSE 74; RESP 16; O2SAT 99
[2021-11-24 23:14] VITALS: BP 136/81; PULSE 74; RESP 16; O2SAT 99
== END 2021-11-24 23:17 | disposition home or self-care (01) ==
PROVIDERS: Emergency Provider Nurse Practitioner Family; PCP Family Medicine
DX: T78.40XA Allergy, unspecified, initial encounter (principal); Z85.850 Personal history of malignant neoplasm of thyroid
CPT/HCPCS: 96372; 99283; J1200

== ENCOUNTER 2022-01-03 23:50 | Observation (INO) | payer OTHER, SELFPAY ==
[2022-01-03] VITALS (12 sets, daily range): BP systolic 120–133; BP diastolic 74–87; PULSE 66–83; RESP 16
--- NOTE | 2022-01-03 21:19 | USR_ITS ---
PROCEDURE INFORMATION: Exam: US Biophysical Profile Without Non-Stress Test Exam date and time: 01/03/2022 10:30 PM Age: 26 years old Clinical indication: Injury or trauma; Fall; Injury date: 01/03/22; Injury details: Patient fell down flight of stairs. ; ; Additional info: Decreased movement TECHNIQUE: Imaging protocol: US biophysical profile without non-stress testing. COMPARISON: US OB >= 14 weeks fetus [id number] 09/28/2021 9:46 AM FINDINGS: heart rate: Appropriate cardiac activity is documented. Heart rate is 136 bpm. Presentation: Fetus is in cephalic presentation. Placenta: Anterior placenta demonstrated. No evidence of placenta previa. Amniotic fluid index: Amniotic fluid index is 12.7 cm. BIOPHYSICAL PROFILE: breathing movement (BPP): 2 out of 2. body movement (BPP): 2 out of 2. tone (BPP): 2 out of 2. Amniotic fluid (BPP): 2 out of 2. US/US OB BPP wo NST 78246 IMPRESSION: Biophysical profile score is 8/8.
[2022-01-03 22:07] LABS: Actim Prom Negative
[2022-01-04] VITALS (8 sets, daily range): BP systolic 101–122; BP diastolic 60–80; PULSE 59–85; TEMP 35.9
--- NOTE | 2022-01-04 06:56 | PM.SDS ---
Short Stay Summary Providers Date of Admit/Discharge: 01/14/22 Attending Provider: Loki Goldsmith MD Primary Care Provider: Loki Goldsmith MD Chief Complaint: watch for labor HPI History of Present Illness Ene Faulkner is a 26 year old G5, P2 at 35.6 weeks gestation. Her is complicated by history of thyroid cancer, hypothyroidism on levothyroxine. The patient was getting ready for work and slipped in her rain boots on the ground outside. She fell on her buttocks region. She then began to have some abdominal pain and contractions. For this reason she was monitored. The patient was found to have contractions initially 1 every 10 to 12 minutes, however these increased after her ultrasound to 1 in 4 minutes. For this reason she was kept for further observation and continuous monitoring. The patient denied any nausea, vomiting, vaginal bleeding, leakage of fluid, fevers, chest pain, head trauma, blurred vision, dysuria. 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 Mother No problems noted. Social History Smoking and tobacco status: never smoked Second hand smoke exposure: No Smoking risk assessment/counseling performed?: Yes Alcohol intake: current Alcohol intake frequency: holidays/special occasions only Alcohol type: wine Desire information about alcohol rehabilitation?: No Counseling given: No Desire information about substance/drug rehabilitation?: No Counseling given: No Adopted: No Caregiver/support person: No Lives independently: Yes Household members: children and other Housing: House Marital status: Single Number of children: 2 Highest education level completed: Associate Degree: Academic Program service: No Current occupational status: employed History of recent travel: No Sexually active: Yes Current gender identity: Female María/Scientologist: Synagogue Agree to transfusion: Yes Female Reproductive History: Date of last menstrual period: 09/30/20 : 5 Vitals/I&O/Wt Last Vital Signs Pulse 75 01/04/22 06:50 Resp 16 01/03/22 23:43 BP 121/79 01/04/22 06:50 Physical Exam Narrative: General: Alert and oriented x3 Eyes: Pupils equal round and reactive to light and accommodation Mouth: Mucous membranes moist, pharynx non-erythematous Cardiac: Regular rate and rhythm without murmurs Lungs: Clear to auscultation bilaterally without wheezes, crackles or rhonchi Abdomen: Soft, non-tender, fundus consistent with gestational age Extremities: Trace edema in the bilateral lower extremities Hospital Course Hospital Course The patient was kept on the monitor and initially had contractions every 8 to 12 minutes, however these became more regular after having an ultrasound done. For this reason she was kept for further observation. By the following morning, the contractions have been very spaced out and only 2 to 3/h. The patient was feeling well and was not having any vaginal bleeding or pain. Her fall was relatively low risk. We discussed the option of staying for the rest of the 24 hours versus going home due to the findings and she was in agreement with discharge home at this time. She was given precautions and is to return if any symptoms are returning. All questions were answered. The patient is in agreement with the current plan of care. Discharge Summary As above. SSS Data Data Completed and Pending: Completed Studies During Hospitalization Category Date Time Status US OB BPP w o NST 36373 Stat Ultrasound 01/03/22 21:19 Completed Discharge Plan Discharge Patient Disposition: Home Condition: Stable Prescriptions: Continued levothyroxine 150 mcg tablet 150 mcg PO DAILY Qty: 90 3RF Rx Instructions: Take 1 1/2 tablets on Friday and Friday. Take one tablet by mouth Friday, Friday, , Friday, and Friday. PNV cmb#95-ferrous fumarate-FA [] 28 mg iron- 800 mcg Tablet 1 tab PO DAILY 0RF Discharge Orders: Discharge Order (Routine); Ordered 01/04/22 Ordered By: Loki Goldsmith Referrals: Loki Goldsmith MD [Primary Care Provider] - 1-3 days Discharge Diet: Regular Patient Instructions: Labor (DC), Movement (DC), Opioid Safety, OB Undelivered Discharge Activity Restrictions/Additional Instructions: Decreased activity today, then okay to gradually increase again. Off of work today. If her contractions started to increase over the next couple of days, he has vaginal bleeding or significant abdominal pain, please return to OB right away for evaluation. Attestations Medical Necessity Statement*: The patient was in for observation and her stay did not need to cross 2 midnights. Time Spent in Patient Care*: greater than 30 min Quality Metrics Clinical Quality Measures: [ No reported AMI, CVA or VTE this stay] Coding Level of Care Code Acute General Merchandise Salesperson for Marthag Bradford
== END 2022-01-04 08:50 | disposition home or self-care (01) ==
LOC: OPOB 01-04 03:21 → OBGYN 01-04 03:21
PROVIDERS: Absent Provider Family Medicine; Admitting Provider Family Medicine; PCP Family Medicine; Visit Provider Family Medicine
DX: O36.8190 Decreased fetal movements, unspecified trimester, not applicable or unspecified (principal); Z3A.00 Weeks of gestation of pregnancy not specified; Z91.81 History of falling; R10.9 Unspecified abdominal pain
CPT/HCPCS: 59025; 76819; 83986; 84112; 99211; G0378

== ENCOUNTER → 2022-01-07 14:51 | Outpatient (BNVA) | payer OTHER, SELFPAY | PROVIDERS: PCP Family Medicine; Visit Provider Family Medicine | DX: Z34.80 Encounter for supervision of other normal pregnancy, unspecified trimester (principal) | CPT/HCPCS: 85025; 87081 ==

== ENCOUNTER 2022-01-14 10:53 | Inpatient (IN) | payer OTHER, SELFPAY ==
[2022-01-14] VITALS (17 sets, daily range): BP systolic 100–167; BP diastolic 54–93; PULSE 51–81; RESP 16–17; TEMP 36.2–36.8
--- NOTE | 2022-01-14 11:51 | P.HP_ITS ---
Providers/Chief Complaint Admitting Physician: Loki Goldsmith MD Primary Care Provider: Loki Goldsmith MD Chief Complaint: contractions History of Present Illness Ene Bustillos is a 26 year old at 37.2 weeks gestation by LMP consistent with 11-week ultrasound. Her is complicated by history of thyroid cancer, hypothyroidism on levothyroxine, GBS positive. The patient presented to labor and delivery with spontaneous labor. She began having some intermittent contractions overnight, however they became stronger and by 9 AM on 01/14/2022 they were regular. For this reason she presented for further evaluation. She was found to be complete at 10:43 AM upon presentation. 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 Mother No problems noted. Social History Smoking and tobacco status: never smoked Second hand smoke exposure: No Smoking risk assessment/counseling performed?: Yes Alcohol intake: current Alcohol intake frequency: holidays/special occasions only Alcohol type: wine Desire information about alcohol rehabilitation?: No Counseling given: No Desire information about substance/drug rehabilitation?: No Counseling given: No Adopted: No Caregiver/support person: No Lives independently: Yes Household members: children and other Housing: House Marital status: Single Number of children: 2 Highest education level completed: Associate Degree: Academic Program service: No Current occupational status: employed History of recent travel: No Sexually active: Yes Current gender identity: Female María/Lutheran: Mandaen Agree to transfusion: Yes Female Reproductive History: Date of last menstrual period: 09/30/20 Vitals/I&O/Wt Last Vital Signs Pulse 72 01/14/22 10:57 BP 133/81 01/14/22 10:57 Physical Exam Narrative: General: Alert and oriented x3 Cardiac: Regular rate and rhythm without murmurs Lungs: Clear to auscultation bilaterally without wheezes, crackles or rhonchi Abdomen: Soft, non-tender, fundus consistent with gestational age Extremities: Trace edema in the bilateral lower extremities Data : 01/14/22 10:45 A&P Assessment and plan (1) Intrauterine : Status: Acute (2) Positive GBS test: Status: Acute Plan The patient is an active labor. We will proceed with delivery. She will unlikely have time to get the ampicillin for GBS prophylaxis. heart tones are in the mid 140s with moderate variability and good accelerations with a category 1 tracing. Attestations Medical Necessity Statement*: The patient will be here for greater than 2 midnights due to routine intrapartum and management of labor and delivery. Coding Level of Care Code Acute Religious Studies Professor for Scott Felder Diagnoses Intrauterine Z34.90 Positive GBS test B95.1
--- NOTE | 2022-01-14 11:56 | P.PCNOB_ITS ---
Delivery Note: Date of delivery: January 14, 2022 Pre-delivery diagnoses: 1. Intrauterine at 37.2 weeks gestation 2. GBS positive 3. History of thyroid cancer 4. Hypothyroidism Post-delivery diagnoses: 1. Intrauterine status post spontaneous vaginal delivery at 37.2 weeks gestation 2. GBS positive 3. History of thyroid cancer 4. Hypothyroidism 5. Delivery of healthy female weighing 5 pounds 3 ounces with Apgars of 8 and 9 Procedure: Spontaneous vaginal delivery. Delivering Physician: Loki Goldsmith MD Estimated blood loss (mL): 100 Findings: Intact placenta with calcifications on approximately 15% of the lateral edge thought to be consistent with an old abruption. Pre-Delivery Course: Ene Bustillos is a 26 year old at 37.2 weeks gestation by LMP consistent with 11-week ultrasound.? Her was complicated by history of thyroid cancer, hypothyroidism on levothyroxine, GBS positive. The patient presented to labor and delivery with spontaneous labor.? She began having some intermittent contractions overnight, however they became stronger and by 9 AM on 01/14/2022 they were regular.? For this reason she presented for further evaluation.? She was found to be complete at 10:43 AM upon presentation. Delivery: AROM was performed at 10:56 AM on 01/14/2022. Clear fluid was noted. The patient began pushing at 10:59 AM. She pushed well. The delivered in the OA position at 11:32 AM on 01/14/2022. The right shoulder was the anterior shoulder and it delivered with ease. The rest of the infant delivered quickly without complication. The infant was crying immediately upon delivery and the 's mouth and nose were bulb suctioned by myself. The was placed on the mother's chest where the nurses were awaiting to care for her. The cord was clamped after approximately 1 minute. The cord was cut by the 's father. Cord blood was obtained. The cord was then drained of blood and traction was placed on the umbilical cord. Uterine massage was carried out and the placenta delivered without complication at 11:37 AM. The placenta was noted to be intact with a central umbilical cord insertion site. The lateral 15% of the placenta had significant calcifications and was firm concerning for a prior abruption that was well-healed. No other abnormalities were noted. The uterus was massaged and noted to be firm. The cervix was inspected and no lacerations were noted. The vaginal wall was inspected and no lacerations were noted. Currently the patient's bleeding is very little. The patient and her are doing well. History History History 5 Term 3 Miscarriages/Ectopic Living Children 3 A&P Assessment and plan (1) Spontaneous vaginal delivery: Status: Acute (2) Positive GBS test: Status: Acute Plan The patient is doing well at this time. We will proceed with routine care. Coding Level of Care Code Acute Junior Loan Processor for Chg Fwd Diagnoses Spontaneous vaginal delivery O80 Positive GBS test B95.1
[2022-01-14 13:00] LABS: Basophils % 0.2 %; Hematocrit 42.6 % (37.0-47.0); Hemoglobin 15.1 g/dL (11.5-15.3); Lymphocytes # 1.8 10^3/uL (0.8-4.8); Lymphocytes % 14.7 %; Mean Corpuscular HGB Conc 35.4 g/dL (30.0-36.0); Mean Corpuscular Hemoglobin 30.3 pg (28.0-34.0); Mean Corpuscular Volume 85.4 fl (81-99); Mean Platelet Volume 11.1 fL (7.4-10.4); Monocytes # 0.7 10^3/uL (0.2-0.9); Monocytes % 5.2 %; Neutrophils # 9.85 10^3/uL (1.8-7.7); Neutrophils % 79.4 %; Nucleated Red Blood Cells % 0 %; Platelet Count 282 10^3/cmm (130-400); Red Blood Count 4.99 10^6/uL (4.1-5.3); White Blood Count 12.4 10^3/uL (4.0-10.0)
[2022-01-14] MEDS: ibuprofen 800 mg tablet PO ×2 (15:45→21:10)
[2022-01-14] MEDS: docusate sodium 100 mg Capsule PO (21:13)
[2022-01-14 23:47] LABS: Hematocrit 37.5 % (37.0-47.0); Hemoglobin 12.6 g/dL (11.5-15.3); Mean Corpuscular HGB Conc 33.6 g/dL (30.0-36.0); Mean Corpuscular Hemoglobin 28.8 pg (28.0-34.0); Mean Corpuscular Volume 85.6 fl (81-99); Mean Platelet Volume 10.3 fL (7.4-10.4); Platelet Count 215 10^3/cmm (130-400); Red Blood Count 4.38 10^6/uL (4.1-5.3); Red Cell Distribution Width 12.7 % (12.1-15.1); White Blood Count 10.5 10^3/uL (4.0-10.0)
[2022-01-15 04:57] VITALS: BP 149/96; PULSE 64; RESP 17; TEMP 37
[2022-01-15] MEDS: acetaminophen 325 mg Tablet 650 MG PO (05:11)
--- NOTE | 2022-01-15 08:00 | PM.PN ---
Subjective Subjective: The patient is feeling well today. She is status post spontaneous vaginal delivery yesterday. Her bleeding is decreasing well. Her pain is well controlled however she is having some cramping. She is ambulating, voiding, passing gas and tolerating food by mouth. Vitals/I&O/Wt Last Vital Signs Temp 98.6 F 01/15/22 04:57 Pulse 64 01/15/22 04:57 Resp 17 01/15/22 04:57 BP 149/96 01/15/22 04:57 Weight last 48 hrs Weight 5 lb 3 oz Physical Exam Narrative: General: Alert and oriented x3 Cardiac: Regular rate and rhythm without murmurs Lungs: Clear to auscultation bilaterally without wheezes, crackles or rhonchi Abdomen: Soft, mild tenderness over uterus. The uterus is firm and 3 cm below the umbilicus. Extremities: Trace edema in the bilateral lower extremities Data : 01/14/22 23:30 A&P Assessment and plan (1) Spontaneous vaginal delivery: Status: Acute (2) Positive GBS test: Status: Acute (3) Hypothyroidism: Status: Acute Qualifiers: Hypothyroidism type: postoperative Qualified Code(s): E89.0 - Postprocedural hypothyroidism Plan The patient is doing well at this time. We will have her continue with routine care. Likely discharge home tomorrow if everything is going well. It is possible that she may need to room-in depending on how her infant is doing. All questions were answered. The patient is in agreement with current plan of care. Attestations Medical Necessity Statement*: The patient will be here for greater than 2 midnights due to routine intrapartum and management of labor and delivery. Coding Level of Care Code Acute Package Collector for Chg Fwd Diagnoses Spontaneous vaginal delivery O80 Positive GBS test B95.1 Hypothyroidism E89.0 Hypothyroidism type: postoperative
[2022-01-15] MEDS: docusate sodium 100 mg Capsule PO ×2 (09:01→21:01)
[2022-01-15] MEDS: levothyroxine 150 mcg Tablet PO (09:01)
[2022-01-15] MEDS: ibuprofen 800 mg tablet PO ×3 (09:01→21:01)
[2022-01-15] MEDS: prenatal vitamin Capsule 1 CAP PO (09:01)
[2022-01-15 10:24] VITALS: BP 126/80; PULSE 62; RESP 18; TEMP 36.6; O2SAT 96
[2022-01-15 17:13] VITALS: BP 133/80; PULSE 70; RESP 18; O2SAT 97
[2022-01-15 22:00] VITALS: BP 124/77; PULSE 77; RESP 16; TEMP 36.9; O2SAT 98
[2022-01-16 04:00] VITALS: BP 121/73; PULSE 79; RESP 16; TEMP 36.8; O2SAT 97
--- NOTE | 2022-01-16 08:33 | PM.DCS ---
Discharge Providers Date of Admission: 01/14/22 10:53 Date of Discharge: January 16, 2022 Attending Provider at Admission: Loki Goldsmith MD Attending Provider at Discharge: Loki Goldsmith MD Primary Care Provider: Loki Goldsmith MD Diagnoses at Discharge Discharge Diagnosis (1) Spontaneous vaginal delivery: Status: Acute (2) Positive GBS test: Status: Acute (3) Hypothyroidism: Status: Acute Qualifiers: Hypothyroidism type: postoperative Qualified Code(s): E89.0 - Postprocedural hypothyroidism Other Information Additional DC diagnoses/information: 1.? Intrauterine status post spontaneous vaginal delivery at 37.2 weeks gestation 2.? GBS positive 3.? History of thyroid cancer 4.? Hypothyroidism 5.? Delivery of healthy infant female weighing 5 pounds 3 ounces with Apgars of 8 and 9? Reason for Visit Reason for Visit: contractions Brief History: Ene Bustillos is a 26 year old at 37.2 weeks gestation by LMP consistent with 11-week ultrasound.? Her was complicated by history of thyroid cancer, hypothyroidism on levothyroxine, GBS positive. The patient presented to labor and delivery with spontaneous labor.? She began having some intermittent contractions overnight, however they became stronger and by 9 AM on 01/14/2022 they were regular.? For this reason she presented for further evaluation.? She was found to be complete at 10:43 AM upon presentation. Hospital Course Hospital Course The patient had an uncomplicated spontaneous vaginal delivery. She did not have any signs of complications afterwards. Her bleeding has decreased well. Her pain is well controlled. She is ambulating, voiding, passing gas and tolerating food by mouth. All questions were answered. The patient is in agreement with discharge home at this time. Routine discharge instructions were discussed. Physical Exam Narrative: General: Alert and oriented x3 Cardiac: Regular rate and rhythm without murmurs Lungs: Clear to auscultation bilaterally without wheezes, crackles or rhonchi Abdomen: Soft, mild tenderness over uterus. The uterus is firm and 4 cm below the umbilicus. Extremities: Trace edema in the bilateral lower extremities Discharge Data Studies Completed and Pending Laboratory Results WBC 10.5 10^3/uL (4.0-10.0) H 01/14/22 23:30 RBC 4.38 10^6/uL (4.1-5.3) 01/14/22 23:30 Hgb 12.6 g/dL (11.5-15.3) 01/14/22 23:30 Hct 37.5 % (37.0-47.0) 01/14/22 23:30 MCV 85.6 fl (81-99) 01/14/22 23:30 MCH 28.8 pg (28.0-34.0) 01/14/22 23:30 MCHC 33.6 g/dL (30.0-36.0) D 01/14/22 23:30 RDW 12.7 % (12.1-15.1) 01/14/22 23:30 Plt Count 215 10^3/cmm (130-400) 01/14/22 23:30 MPV 10.3 fL (7.4-10.4) 01/14/22 23:30 Neut % (Auto) 79.4 % 01/14/22 10:45 Lymph % (Auto) 14.7 % 01/14/22 10:45 [place] % (Auto) 5.2 % 01/14/22 10:45 Eos % (Auto) 0.0 % 01/14/22 10:45 Baso % (Auto) 0.2 % 01/14/22 10:45 Neut # (Auto) 9.85 10^3/uL (1.8-7.7) H 01/14/22 10:45 Lymph # (Auto) 1.8 10^3/uL (0.8-4.8) 01/14/22 10:45 [place] # (Auto) 0.7 10^3/uL (0.2-0.9) 01/14/22 10:45 Eos # (Auto) 0.0 10^3/uL (0.0-0.8) 01/14/22 10:45 Baso # (Auto) 0.0 10^3/uL (0.0-0.1) 01/14/22 10:45 Nucleated RBC % (auto) 0 % 01/14/22 10:45 Nucleated RBCs # 0.0 /100WBC 01/14/22 10:45 Vitals Last Vital Signs Temp 98.3 F 01/16/22 04:00 Pulse 79 01/16/22 04:00 Resp 16 01/16/22 04:00 BP 121/73 01/16/22 04:00 Pulse Ox 97 01/16/22 04:00 Discharge Plan Discharge Patient Disposition: Home Condition: Good Prescriptions: New ibuprofen 800 mg Tablet 800 mg PO TID Qty: 60 0RF Continued levothyroxine 150 mcg tablet 150 mcg PO DAILY Qty: 90 3RF Rx Instructions: Take 1 1/2 tablets on Friday and Friday. Take one tablet by mouth Friday, Friday, , Friday, and Friday. PNV cmb#95-ferrous fumarate-FA [] 28 mg iron- 800 mcg Tablet 1 tab PO DAILY 0RF Discharge Orders: Discharge Order (Routine); Ordered 01/16/22 Ordered By: Loki Goldsmith Referrals: Loki Goldsmith MD [Primary Care Provider] - 6 Weeks Discharge Diet: Regular Discharge Activity: Increase activity as tolerated Patient Instructions: Depression (DC), Bleeding (DC), Preeclampsia and Eclampsia After Delivery (GEN), OB Discharge Report, OB Food/Drug Interaction Guide, OB Care at Home, Opioid Safety, OB [facility] - [facility], OB Vaginal Deliveries, Abnormal Bleeding Activity Restrictions/Additional Instructions: Nothing per vagina for 6 weeks. Discharge Attestations Time Spent in Discharge Care*: less than 30 min Quality Metrics Clinical Quality Measures [ No reported AMI, CVA or VTE this stay] Coding Level of Care Code Acute Chg FW DC note Diagnoses Spontaneous vaginal delivery O80 Positive GBS test B95.1 Hypothyroidism E89.0 Hypothyroidism type: postoperative
[2022-01-16] MEDS: ibuprofen 800 mg tablet PO (08:42)
[2022-01-16] MEDS: docusate sodium 100 mg Capsule PO (08:42)
[2022-01-16] MEDS: prenatal vitamin Capsule 1 CAP PO (08:42)
[2022-01-16] MEDS: levothyroxine 150 mcg Tablet 225 MCG PO (09:59)
[2022-01-16 10:11] VITALS: BP 140/84; PULSE 100; RESP 18; O2SAT 99
== END 2022-01-16 10:30 | disposition home or self-care (01) | DRG 807 ==
LOC: OPOB 12:48 → OBGYN 12:49
PROVIDERS: Admitting Provider Family Medicine; PCP Family Medicine; Visit Provider Family Medicine
DX: O99.824 Streptococcus B carrier state complicating childbirth (principal); Z37.0 Single live birth; O99.284 Endocrine, nutritional and metabolic diseases complicating childbirth; E89.0 Postprocedural hypothyroidism; Z3A.37 37 weeks gestation of pregnancy; Z85.850 Personal history of malignant neoplasm of thyroid
CPT/HCPCS: 36415; 59409; 85025; 85027

== ENCOUNTER 2022-07-14 20:10 | Emergency (ER) | payer OTHER, SELFPAY ==
[2022-07-14 20:14] VITALS: BP 136/92; PULSE 62; RESP 18; TEMP 36.5; O2SAT 98; BMI 31.8
--- NOTE | 2022-07-14 20:39 | CTR_ITS ---
PROCEDURE INFORMATION: Exam: CT Head Without Contrast Exam date and time: 07/14/2022 8:52 PM Age: 27 years old Clinical indication: Injury or trauma; Fall; Blunt trauma (contusions or hematomas); Additional info: Head trauma with loc TECHNIQUE: Imaging protocol: Computed tomography of the head without contrast. Radiation optimization: All CT scans at this facility use at least one of these dose optimization techniques: automated exposure control; mA and/or kV adjustment per patient size (includes targeted exams where dose is matched to clinical indication); or iterative reconstruction. COMPARISON: CT head wo con* [id number] 04/17/2020 1:43 PM RADIATION DOSE METRICS: Total DLP (mGy-cm): 1140.19 FINDINGS: Brain: Normal. No hemorrhage. Unremarkable white matter. No mass effect. Cerebral ventricles: No ventriculomegaly. Paranasal sinuses: Visualized sinuses are unremarkable. No fluid levels. Mastoid air cells: Visualized mastoid air cells are well aerated. Bones/joints: Unremarkable. No acute fracture. Soft tissues: Unremarkable. CT/CT head wo con* [id number] IMPRESSION: No acute intracranial abnormality.
--- NOTE | 2022-07-14 20:39 | CTR_ITS ---
PROCEDURE INFORMATION: Exam: CT Cervical Spine Without Contrast Exam date and time: 07/14/2022 8:52 PM Age: 27 years old Clinical indication: Injury or trauma; Fall; Blunt trauma; Additional info: Fall with neck pain TECHNIQUE: Imaging protocol: Computed tomography of the cervical spine without contrast. Radiation optimization: All CT scans at this facility use at least one of these dose optimization techniques: automated exposure control; mA and/or kV adjustment per patient size (includes targeted exams where dose is matched to clinical indication); or iterative reconstruction. COMPARISON: CT cervical spin wo con* [id number] 10/04/2020 10:19 PM RADIATION DOSE METRICS: Total DLP (mGy-cm): 175.5 FINDINGS: Bones/joints: No acute fracture. Normal alignment. C2-C3: No significant disc protrusion. No severe spinal canal stenosis. No significant neural foraminal narrowing. C3-C4: No significant disc protrusion. No severe spinal canal stenosis. No significant neural foraminal narrowing. C4-C5: No significant disc protrusion. No severe spinal canal stenosis. No significant neural foraminal narrowing. C5-C6: No significant disc protrusion. No severe spinal canal stenosis. No significant neural foraminal narrowing. C6-C7: No significant disc protrusion. No severe spinal canal stenosis. No significant neural foraminal narrowing. C7-T1: No significant disc protrusion. No severe spinal canal stenosis. No significant neural foraminal narrowing. Lungs: Lung apices are normal. Soft tissues: Unremarkable. CT/CT cervical spin wo con* [id number] IMPRESSION: No acute findings.
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
== END 2022-07-14 21:47 | disposition home or self-care (01) ==
PROVIDERS: Emergency Provider Emergency Medicine; PCP Family Medicine
DX: S06.0XAA Concussion with loss of consciousness status unknown, initial encounter (principal); S09.8XXA Other specified injuries of head, initial encounter; Z85.850 Personal history of malignant neoplasm of thyroid; Y04.2XXA Assault by strike against or bumped into by another person, initial encounter
CPT/HCPCS: 70450; 72125; 99284

== ENCOUNTER 2022-10-10 02:53 | Outpatient (CLI) | payer OTHER, SELFPAY ==
[2022-10-10 03:42] LABS: Free T4 Free Thyroxine 1.69 ng/dL (0.82-1.77); Thyroid Stimulating Hormone 0.71 uIU/mL (0.27-4.20)
[2022-10-11 17:55] LABS: Thyroglobulin AB <1 IU/mL (< or = 1)
[2022-10-17 16:39] LABS: Thyroglobulin Level <0.4 ng/mL
== END 2022-10-10 02:54 | disposition home or self-care (01) ==
LOC: LAB 02:56
PROVIDERS: PCP Family Medicine; Visit Provider Internal Medicine
DX: C73 Malignant neoplasm of thyroid gland (principal); E89.0 Postprocedural hypothyroidism; Z98.890 Other specified postprocedural states
CPT/HCPCS: 84432; 84439; 84443; 86800

== ENCOUNTER 2025-03-16 17:04 | Emergency (ER) | payer SELFPAY ==
[2025-03-16 17:35] VITALS: BP 161/95; PULSE 75; RESP 17; TEMP 36.8; O2SAT 95; BMI 25.7
--- NOTE | 2025-03-16 17:45 | W.ED.SKABFB ---
HPI - Skin/Abscess/Foreign Bdy General: Chief complaint: Skin/Abscess/Foreign Body Stated complaint: rash Time Seen by Provider: 03/16/25 17:41 History of Present Illness: 29-year-old female who presents emergency room with a rash. She said this started a few hours ago. It is improving some now but she said it was all over her neck and her bottom and her torso. Still some light rash. But it is improving. No shortness of breath. No throat closing. She has no known new exposures. Related Data Previous Rx's ?Medication ?Instructions ?Recorded sertraline 25 mg tablet 25 mg PO DAILY #30 tabs 03/20/22 levothyroxine 150 mcg tablet 150 mcg PO DAILY #90 tabs 10/29/23 dexamethasone 6 mg tablet 6 mg PO DAILY 5 days #5 tabs 03/16/25 hydroxyzine HCl 25 mg tablet 25 mg PO Q8H PRN itching #30 tabs 03/16/25 triamcinolone acetonide 0.1 % 1 applic topical TID #30 grams 03/16/25 topical ointment Allergies Allergy/AdvReac Type Severity Reaction Status Date / Time No Known Allergies Allergy Verified 03/16/25 17:38 Review of Systems Narrative: Constitutional symptoms: Negative except as documented in HPI. Skin symptoms: Negative except as documented in HPI. Eye symptoms: Negative except as documented in HPI. ENMT symptoms: Negative except as documented in HPI. Respiratory symptoms: Negative except as documented in HPI. Cardiovascular symptoms: Negative except as documented in HPI. Gastrointestinal symptoms: Negative except as documented in HPI. Genitourinary symptoms: Negative except as documented in HPI. Musculoskeletal symptoms: Negative except as documented in HPI. Neurologic symptoms: Negative except as documented in HPI. Psychiatric symptoms: Negative except as documented in HPI. Endocrine symptoms: Negative except as documented in HPI. 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 Mother No problems noted. Social History Smoking and tobacco/nicotine status: never used tobacco/nicotine Second hand smoke exposure: No Alcohol intake: current Alcohol intake frequency: holidays/special occasions only Alcohol type: wine Substance/Drug Use: never Adopted: No Caregiver/support person: No Lives independently: Yes Household members: children and other Housing: House Marital status: Single Number of children: 2 Highest education level completed: Associate Degree: Academic Program service: No Current occupational status: employed Sexually active: Yes Do you think of yourself as: Straight/Heterosexual Current gender identity: Female María/Anglican: Advent Agree to transfusion: Yes Physical Exam Narrative: EXAM NARRATIVE: General: Alert, no acute distress. Skin: Warm, dry. Urticarial rash Head: Normocephalic, atraumatic. Neck: Supple, trachea midline. Eye: Extraocular movements are intact. Ears, nose, mouth and throat: mucosa moist. Cardiovascular: Regular, Normal peripheral perfusion. Respiratory: Lungs are clear to auscultation, respirations are non-labored, breath sounds are equal, Symmetrical chest wall expansion. Gastrointestinal: Soft, Nontender, Non distended Musculoskeletal: Normal ROM, no deformity. Neurological: Alert and oriented, No focal neurological deficit observed. Psychiatric: Cooperative, appropriate mood & affect. Course Vital Signs: Vital signs: Vital Signs Temperature 98.2 F 03/16/25 17:35 Pulse Rate 75 03/16/25 17:35 Respiratory Rate 17 03/16/25 17:35 Blood Pressure 161/95 03/16/25 17:35 Pulse Oximetry 95 03/16/25 17:35 Oxygen Delivery Me thod Room Air 03/16/25 17:35 MDM - Skin/Abscess/Foreign Bdy Medicial Decision Making Assessment and plan: Urticaria - Discharged home - Discussed plan with patient. Answered any questions. - Evaluation and treatment of this problem were appropriate in the emergency setting. No radiology studies performed this visit Discharge Plan Discharge Patient Disposition: Home Clinical Impression: Urticaria Condition: Stable Prescriptions: New dexamethasone 6 mg tablet 6 mg PO DAILY 5 Days Qty: 5 0RF hydroxyzine HCl 25 mg tablet 25 mg PO Q8H PRN (Reason: itching) Qty: 30 0RF triamcinolone acetonide 0.1 % ointment 1 applic topical TID Qty: 30 0RF No Action sertraline 25 mg tablet 25 mg PO DAILY Qty: 30 3RF levothyroxine 150 mcg tablet 150 mcg PO DAILY Qty: 90 3RF Rx Instructions: 1 Tablet Friday through Friday and 1.5 Tablet on Friday Discharge Orders: Discharge ED (Routine); Ordered 03/16/25 Ordered By: Monalisa Bravo Referrals: Loki Goldsmith MD [Primary Care Provider, Family Practice] Discharge Diet: Usual diet Discharge Activity: Increase activity as tolerated Patient Instructions: Urticaria (ED), Opioid Safety, Pain Management, Patient Portal & Kayla Instructions Activity Restrictions/Additional Instructions: Thank you for choosing [facility] for your healthcare needs today. You have been screened and evaluated and felt safe for discharge. Health conditions do change or evolve sometimes and as such it is important that you follow up with your Primary Doctor to be re checked, 3-5 days is a general good time frame for follow up. You are always welcome to return to the ED for re assessment if your symptoms are worsening or you have new concerns Print Language: British Coding Level of Care Code ED Edge Cutting Machine Operator for Scott Felder
[2025-03-16 17:56] VITALS: BP 160/81; PULSE 73; O2SAT 100
== END 2025-03-16 17:57 | disposition home or self-care (01) ==
PROVIDERS: Emergency Provider Emergency Medicine; PCP Family Medicine
DX: L50.9 Urticaria, unspecified (principal)
CPT/HCPCS: 99283

== ENCOUNTER 2025-05-18 09:45 | Emergency (ER) | payer BC, SELFPAY ==
[2025-05-18 09:48] VITALS: BP 181/107; PULSE 71; TEMP 36.7; O2SAT 100; BMI 27.1
--- NOTE | 2025-05-18 10:32 | CT_ITS ---
WS: [id number] CT ABDOMEN AND PELVIS WITH CONTRAST HISTORY: abd pain, RIGHT upper quadrant pain for 2 months. TECHNIQUE: Imaging performed of the abdomen and pelvis with IV contrast. Single phase imaging of the abdomen. Coronal and sagittal reformats are submitted. All CT scans at [facility] use at least one of these dose optimization techniques: automated exposure control; mA and/or kV adjustment per patient size (includes targeted exams where dose is matched to clinical indication); or iterative reconstruction. IV CONTRAST: Omnipaque 350; 100 mL IV. Oral contrast: No DLP: 496.00 mGy.cm COMPARISON: 10/05/2019 Lower thorax: Benign calcified granuloma LEFT lung base. Normal size heart. No hiatal hernia. Liver/biliary system: Normal size with no intrahepatic dilatation. Gallbladder: Normal. No gallstones or wall thickening. No pericholecystic fluid. Pancreas: As visualized the pancreas is normal. Mild motion artifact at the pancreatic head. Spleen: Normal size spleen. No mass or infarct. Adrenal glands: Normal. Right kidney: Normal. Left kidney: Normal. Aorta: Normal. Lymphadenopathy: None. Free fluid: None. GI tract: Nondistended stomach. Marked circumferential thickening of the gastric antrum. Submucosal edema involving the gastric antrum with wall thickening. Small ulceration is suspected. There is no free air or perforation. Small bowel is negative. The appendix is normal. No colitis. Abdominal wall: Unremarkable abdominal wall. No hernia. Pelvis: Uterus is present and normal size. No adenopathy. No free fluid. Normal urinary bladder. Bones: Unremarkable. CT/CT abdomen pelvis w con* [id number] IMPRESSION: 1. Marked circumferential submucosal edema involving the gastric antrum consis tent with gastritis. There may be a very tiny ulceration also present. 2. No free air. 3. No GI tract obstruction. 4. No free fluid. 5. Negative gallbladder by CT. 6. No renal obstruction.
[2025-05-18 10:44] LABS: Glucose Urine UA Negative (Normal); Nitrate Urine Negative (Negative); Specific Gravity, Urine 1.008 (1.005-1.030)
[2025-05-18 10:46] LABS: Add Urine Microscopic? YES
[2025-05-18 10:47] LABS: Hematocrit 41.3 % (36-47); Hemoglobin 14.00 g/dL (11.27-16.99); Mean Corpuscular HGB Conc 33.9 g/dL (30-55); Mean Corpuscular Hemoglobin 30.4 pg (27-33); Mean Corpuscular Volume 89.8 fl (85-98); Nucleated Red Blood Cells % 0 %; Platelet Count 262 10^3/cmm (157-399); Red Blood Count 4.60 10^6/uL (3.85-5.65); White Blood Count 5.77 10^3/uL (3.29-11.43)
--- NOTE | 2025-05-18 10:52 | US_ITS ---
WS: [id number] RIGHT UPPER QUADRANT ULTRASOUND HISTORY: Right upper quadrant abdominal pain COMPARISON: 04/28/2019 Liver: 15.3 cm in length. Normal size liver and echogenicity. No bile duct dilatation or mass. Portal Vein: Normal hepatopetal flow with monophasic waveform. Gallbladder: Normally distended gallbladder with no stones or wall thickening. CBD: 0.3 cm Pancreas: Normal size and echogenicity. Right kidney: 9.9 cm in length. Normal size and echogenicity. No hydronephrosis or mass. Aorta and IVC: Unremarkable abdominal aorta and IVC. No ascites. US/US gall bladder [id number] IMPRESSION: Normal right upper quadrant ultrasound.
--- NOTE | 2025-05-18 10:52 | ED_ITS ---
HPI - Abdominal Pain 2 General: Chief Complaint: Abdominal Pain Stated Complaint: Upper ABD Pain Extream Pain Time Seen by Provider: 05/18/25 10:29 History of Present Illness: 29-year-old female presents emergency ro om complaining of right upper quadrant abdominal pain extending down to the periumbilical area this been going on for last couple of weeks she has seen her physician. She has noted being triggered by greasy foods she had episodes the last several hours to a day get very nauseous and bloating no acholic stools no hematochezia melena hematemesis or coffee-ground emesis. Today's episode is precipitated after having eaten fast foods last night similar symptoms again with bloating right upper quadrant abdominal pain nausea. No previous abdominal surgeries. Associated Symptoms: Denies chills, dysuria and fever(s) Related Data Previous Rx's ?Medication ?Instructions ?Recorded sertraline 25 mg tablet 25 mg PO DAILY #30 tabs 03/02 levothyroxine 150 mcg tablet 150 mcg PO DAILY #90 tabs 10/29/23 hydroxyzine HCl 25 mg tablet 25 mg PO Q8H PRN itching #30 tabs 03/16/25 triamcinolone acetonide 0.1 % 1 applic topical TID #30 grams 03/16/25 topical ointment pantoprazole 40 mg tablet,delayed 40 mg PO BID 10 days #40 tabs 05/18/25 release promethazine 25 mg tablet 25 mg PO Q6H PRN nausea and 05/18/25 vomiting #20 tabs Allergies Allergy/AdvReac Type Severity Reaction Status Date / Time No Known Allergies Allergy Verified 05/18/25 09:53 Review of Systems 2 Const: Denies: fever(s) or chills Card: Denies: chest pain Resp: Denies: dyspnea GI: Denies: abdominal pain : Denies: dysuria, urinary frequency or urinary urgency Musc: Denies: neck pain or back pain Skin/Breast: Denies: rash PFSH ED 2 PFSH: Medical History Nazario's disease Thyroid carcinoma Miscarriage Thyroid cancer 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 Mother No problems noted. Social History Smoking and tobacco/nicotine status: never used tobacco/nicotine Second hand smoke exposure: No Alcohol intake: current Alcohol intake frequency: holidays/special occasions only Alcohol type: wine Substance/Drug Use: never Adopted: No Caregiver/support person: No Lives independently: Yes Household members: children and other Housing: House Marital status: Single Number of children: 2 Highest education level completed: Associate Degree: Academic Program service: No Current occupational status: employed Sexually active: Yes Do you think of yourself as: Straight/Heterosexual Current gender identity: Female María/Orthodox: Rastafari Agree to transfusion: Yes Physical Exam 2 Const: COMMON NORMALS: no acute distress GENERAL APPEARANCE: cooperative and comfortable ORIENTATION/CONSCIOUSNESS: Yes awake, Yes oriented to person, Yes oriented to place and Yes oriented to time HENMT: COMMON NORMALS: normocephalic, atraumatic and hearing grossly normal bilaterally HEAD & SCALP: normocephalic and atraumatic Resp: COMMON NORMALS: normal respiratory effort, No retractions, No use of accessory muscles and clear to auscultation bilaterally AUSCULTATION: clear to auscultation bilaterally Cardio: COMMON NORMALS: regular rate, regular rhythm and No murmurs present (Cardio) RATE: regular rate RHYTHM: regular rhythm GI: COMMON NORMALS: No hepatosplenomegaly present AUSCULTATION: Yes normoactive bowel sounds PALPATION: Yes Tenderness to palpation present (GI) Details: RUQ, No Guarding due to palpation present (GI) and Yes No hepatosplenomegaly present Extremity: COMMON NORMALS: normal to inspection, capillary refill normal, no clubbing, cyanosis or edema, no calf tenderness and no pedal edema Neuro: SENSORIUM/ORIENTATION: Yes oriented to person, Yes oriented to place and Yes oriented to time Skin: COMMON NORMALS: no rashes or lesions noted GENERAL SKIN EXAM: no rashes or lesions noted Course 2 Vital Signs: Vital signs: Vital Signs Temperature 98.1 F 05/18/25 09:48 Pulse Rate 73 05/18/25 12:30 Respiratory Rate 16 05/18/25 12:10 Blood Pressure 163/110 05/18/25 12:30 Pulse Oximetry 99 05/18/25 12:30 Oxygen Delivery Me thod Room Air 05/18/25 09:48 MDM - Abdominal Pain Medical Decision Making Labs and imaging unremarkable I believe patient is having biliary colic suspect she has some bili dyskinesia CT did show some gastric inflammation. Will start her on pantoprazole scheduled for outpatient HIDA scan and follow-up with surgery Lab Data 05/18/25 10:40 05/18/25 10:40 Labs/Radiology: Radiology Impressions Abdomen/Pelvis CT 05/18/25 10:32 IMPRESSION: 1. Marked circumferential submucosal edema involving the gastric antrum consistent with gastritis. There may be a very tiny ulceration also present. 2. No free air. 3. No GI tract obstruction. 4. No free fluid. 5. Negative gallbladder by CT. 6. No renal obstruction. Gallbladder Ultrasound 05/18/25 10:52 IMPRESSION: Normal right upper quadrant ultrasound. Laboratory Results WBC 5.77 10^3/uL (3.29-11.43) 05/18/25 10:40 RBC 4.60 10^6/uL (3.85-5.65) 05/18/25 10:40 Hgb 14.00 g/dL (11.27-16.99) 05/18/25 10:40 Hct 41.3 % (36-47) 05/18/25 10:40 MCV 89.8 fl (85-98) 05/18/25 10:40 MCH 30.4 pg (27-33) 05/18/25 10:40 MCHC 33.9 g/dL (30-55) 05/18/25 10:40 RDW 13.2 % (12.1-15.1) 05/18/25 10:40 Plt Count 262 10^3/cmm (157-399) 05/18/25 10:40 MPV 8.8 fL (7.4-10.4) 05/18/25 10:40 Neut % (Auto) 70.0 % 05/18/25 10:40 Lymph % (Auto) 20.6 % 05/18/25 10:40 Pacific % (Auto) 8.7 % 05/18/25 10:40 Eos % (Auto) 0.3 % 05/18/25 10:40 Baso % (Auto) 0.2 % 05/18/25 10:40 Neut # (Auto) 4.04 10^3/uL (1.8-7.7) 05/18/25 10:40 Lymph # (Auto) 1.2 10^3/uL (0.8-4.8) 05/18/25 10:40 Pacific # (Auto) 0.5 10^3/uL (0.2-0.9) 05/18/25 10:40 Eos # (Auto) 0.0 10^3/uL (0.0-0.8) 05/18/25 10:40 Baso # (Auto) 0.0 10^3/uL (0.0-0.1) 05/18/25 10:40 Nucleated RBC % (auto) 0 % 05/18/25 10:40 Nucleated RBCs # 0.0 /100WBC 05/18/25 10:40 Sodium 138 mmol/L (136-145) 05/18/25 10:40 Potassium 4.0 mmol/L (3.5-5.1) 05/18/25 10:40 Chloride 102 mmol/L (98-107) 05/18/25 10:40 Carbon Dioxide 27 mmol/L (22-29) 05/18/25 10:40 Anion Gap 13.0 (5-19) 05/18/25 10:40 BUN 12 mg/dL (6-20) 05/18/25 10:40 Creatinine 0.8 mg/dL (0.5-0.9) 05/18/25 10:40 GFR Calculation 84.2 mL/min (90-130) L 05/18/25 10:40 Glucose 91 mg/dL (65-115) 05/18/25 10:40 Calculated Osmolality 285 mOsm/kg (285-295) 05/18/25 10:40 Calcium 8.8 mg/dL (8.5-10.5) 05/18/25 10:40 Total Bilirubin 0.3 mg/dL (0.15-1.2) 05/18/25 10:40 AST 17 U/L (0-32) 05/18/25 10:40 ALT 20 U/L (0-33) 05/18/25 10:40 Alkaline Phosphatase 65 U/L (35-105) 05/18/25 10:40 Total Protein 7.0 g/dL (6.6-8.7) 05/18/25 10:40 Albumin 4.3 g/dL (3.5-5.2) 05/18/25 10:40 Globulin 2.7 g/dL (1.3-4.6) 05/18/25 10:40 Lipase 40 U/L (13-60) 05/18/25 10:40 HCG, Qual Negative (Negative) 05/18/25 10:40 Urine Color Yellow (Yellow) 05/18/25 10:18 Urine Appearance Clear (CLEAR) 05/18/25 10:18 Urine pH 6.0 (5-7) 05/18/25 10:18 Ur Specific Roslyn 1.008 (1.005-1.030) 05/18/25 10:18 Urine Protein Negative (Negative) 05/18/25 10:18 Urine Glucose (UA) Negative (Normal) 05/18/25 10:18 Urine Ketones Negative (Negative) 05/18/25 10:18 Urine Blood Negative (Negative) 05/18/25 10:18 Urine Nitrate Negative (Negative) 05/18/25 10:18 Urine Bilirubin Negative (Negative) 05/18/25 10:18 Urine Urobilinogen 0.2 mg/dL (Negative) 05/18/25 10:18 Ur Leukocyte Esterase Trace (Negative) A 05/18/25 10:18 Urine RBC 0-2 /hpf (0-2) 05/18/25 10:18 Urine WBC 6-10 /hpf (0-5) 05/18/25 10:18 Ur Squamous Epith Cells 11-20 /hpf (0-5) H 05/18/25 10:18 Amorphous Sediment Not Reportable 05/18/25 10:18 Urine Bacteria Trace /hpf (NONE) 05/18/25 10:18 Hyaline Casts 0.40 /lpf 05/18/25 10:18 All radiology interpretation(s) finalized by discharge Discharge Plan Discharge Patient Disposition: Home Clinical Impression: Biliary colic, Gastric ulcer Condition: Stable Prescriptions: New promethazine 25 mg tablet 25 mg PO Q6H PRN (Reason: nausea and vomiting) Qty: 20 0RF pantoprazole 40 mg tablet,delayed release (DR/EC) 40 mg PO BID 10 Days Qty: 40 0RF Rx Instructions: 1 p.o. twice daily x 10 days then 1 p.o. daily No Action sertraline 25 mg tablet 25 mg PO DAILY Qty: 30 3RF levothyroxine 150 mcg tablet 150 mcg PO DAILY Qty: 90 3RF Rx Instructions: 1 Tablet Friday through Friday and 1.5 Tablet on Friday hydroxyzine HCl 25 mg tablet 25 mg PO Q8H PRN (Reason: itching) Qty: 30 0RF triamcinolone acetonide 0.1 % ointment 1 applic topical TID Qty: 30 0RF Discharge Orders: Discharge ED (Routine); Ordered 05/18/25 Ordered By: Adelso Sheppard Referrals: Moises Acosta MD [Primary Care Provider, Family Practice] Discharge Diet: As Directed Discharge Activity: Resume usual activity Patient Instructions: Biliary Colic (ED), Diet for Stomach Ulcers and Gastritis (ED), GERD (Gastroesophageal Reflux Disease) (ED), Abdominal Pain (ED), Opioid Safety, Pain Management, Patient Portal & Kayla Instructions Stand Alone Forms: Work/School Release Print Language: Yoruba Coding Level of Care Code ED Certified Pedorthotist for Scott Felder
[2025-05-18 11:01] LABS: HCG, Serum Qual Negative (Negative)
[2025-05-18 11:02] LABS: Alanine Aminotransferase 20 U/L (0-33); Albumin Level 4.3 g/dL (3.5-5.2); Alkaline Phosphatase 65 U/L (35-105); Anion Gap 13.0 (5-19); Aspartate Amino Transferase 17 U/L (0-32); Blood Urea Nitrogen 12 mg/dL (6-20); Calcium 8.8 mg/dL (8.5-10.5); Carbon Dioxide 27 mmol/L (22-29); Chloride 102 mmol/L (98-107); Creatinine Clr Calc Pharmacy 96.0972; Globulin 2.7 g/dL (1.3-4.6); Glucose 91 mg/dL (65-115); Lipase 40 U/L (13-60); Osmolality Calculated 285 mOsm/kg (285-295); Potassium 4.0 mmol/L (3.5-5.1); Sodium 138 mmol/L (136-145); Total Protein 7.0 g/dL (6.6-8.7)
[2025-05-18] MEDS: iohexol 350 mg/mL 500 mL Btl (per mL) IV (11:35)
[2025-05-18 12:10] VITALS: BP 160/110; PULSE 68; RESP 16; O2SAT 99
[2025-05-18 12:30] VITALS: BP 163/110; PULSE 73; O2SAT 99
--- NOTE | 2025-05-19 17:36 | DCPLANNER ---
faxed outpatient hida to scheduling
== END 2025-05-18 12:31 | disposition home or self-care (01) ==
PROVIDERS: Emergency Provider Family Medicine; PCP Family Medicine
DX: K80.50 Calculus of bile duct without cholangitis or cholecystitis without obstruction (principal); K25.9 Gastric ulcer, unspecified as acute or chronic, without hemorrhage or perforation; Z85.850 Personal history of malignant neoplasm of thyroid
CPT/HCPCS: 36415; 74177; 76705; 80053; 81001; 83690; 84703; 85025; 99285

== ENCOUNTER 2025-06-02 09:40 | Outpatient (CLI) | payer BC, SELFPAY ==
--- NOTE | 2025-06-02 10:10 | NM_ITS ---
WS: [id number] NUCLEAR MEDICINE HIDA SCAN CLINICAL INFORMATION: RUQ PAIN TECHNIQUE: Following intravenous administration of 7.8 mCi of technetium 99m mebrofenin, images of the abdomen were obtained over the course of 60 minutes. Next, gallbladder ejection fraction was determined by obtaining preprandial and one-hour postprandial images of the gallbladder following oral ingestion of Ensure. FINDINGS: Normal hepatic uptake at 5 minutes. Normal hepatic excretion. Gallbladder is visualized by 10 minutes. No evidence of acute cholecystitis. Normal common bile duct and small bowel activity. Normal gallbladder ejection fraction 61%. NM/NM hepatobiliary w phar* [id number] IMPRESSION: Normal HIDA scan
== END 2025-06-02 09:41 | disposition home or self-care (01) ==
LOC: RAD 09:42
PROVIDERS: PCP Family Medicine; Visit Provider Family Medicine
DX: R10.11 Right upper quadrant pain (principal)
CPT/HCPCS: 78227; A9537